=== PATIENT | male | born 1935 | race Caucasian/White ===

== ENCOUNTER 2016-08-18 06:17 | Emergency (ER) | payer OTHER ==
[2016-08-18 06:36] VITALS: PULSE 65; TEMP 98.3; BMI 24.3
[2016-08-18 06:54] VITALS: BP 129/107
--- NOTE | 2016-08-18 07:36 | PDOC ---
History of Present Illness - General Chief Complaint: Nasal Bleeding Stated Complaint: NOSEBLEED Time Seen by Provider: 08/18/16 07:15 History Source: Patient Exam Limitations: Language Barrier (Griffin, the ER hvac field service technician, was utilized for [place] interpretation) - History of Present Illness Initial Comments: CHIEF COMPLAINT: 81 y/o male with PMH HTN, HLD, GERD c/o nose bleed this morning. HISTORY OF PRESENT ILLNESS: The patient states his nose started bleeding spontaneously this morning. Eventually after applying pressure for a while the bleeding stopped. The patient denies f/c, dizziness, CP, SOB, n/v/d, trauma to face/nose. Pt takes a daily baby aspirin. Vital signs on arrival are notable for BP of 129/116 (the patient has not taken his morning BP meds) REVIEW OF SYSTEMS: GENERAL/CONSTITUTIONAL: No fever/chills. No weakness. No weight change. HEAD, EYES, EARS, NOSE AND THROAT: No change in vision. No ear pain or discharge. No sore throat. +nose bleed CARDIOVASCULAR: No chest pain or shortness of breath. SKIN: No rash or easy bruising. NEUROLOGIC: No headache, vertigo, loss of consciousness, or loss of sensation. PHYSICAL EXAM: GENERAL: The patient is awake, alert, and fully oriented, in no acute distress. HEAD: Normal with no signs of trauma. EYES: Pupils equal, round and reactive to light, extraocular movements intact, sclera anicteric, conjunctiva clear. NOSE: Dried blood in right nare. No septal hematomas. EXTREMITIES: Normal range of motion, no edema. NEUROLOGICAL: Normal speech, normal gait. PSYCH: Normal mood, normal affect. SKIN: Warm, Dry, normal turgor, no rashes or lesions noted. Past History - Past Medical History Allergies/Adverse Reactions: Allergies Allergy/AdvReac Type Severity Reaction Status Date / Time No Known Allergies Allergy Verified 08/18/16 06:33 Home Medications: Ambulatory Orders Ciclopirox/Skin Cleanser No.[id number] [Ciclodan 0.77% Cream Kit] 544 gm TP ASDIR Fluticasone Prop 0.05% Nasal [Flonase -] 1 - 2 spray NS DAILY 09/22/15 Omeprazole [Prilosec] 40 mg PO DAILY 09/22/15 Aspirin [Mal Chewable] 81 mg PO DAILY 08/18/16 Rosuvastatin [Crestor -] 0 mg PO DAILY 08/18/16 Cardiac Disorders: Yes (4 NC'S) CVA: Yes Diabetes: Yes (DIET CONTROLLED) HTN: Yes Hypercholesterolemia: Yes - Immunization History Immunization Up to Date: Yes - Psycho/Social/Smoking Cessation Hx Anxiety: No Suicidal Ideation: No Smoking History: Former smoker Have you smoked in the past 12 months: No If you are a former smoker, when did you quit?: 25 yrs Information on smoking cessation initiated: No Hx Alcohol Use: No Drug/Substance Use Hx: No Substance Use Type: None *Physical Exam - Vital Signs Last Vital Signs Temp Pulse Resp BP Pulse Ox 98.3 F 65 18 129/107 99 08/18/16 06:34 08/18/16 06:34 08/18/16 06:34 08/18/16 06:53 08/18/16 06:34 Medical Decision Making - Medical Decision Making A/P: 81 y/o male with nosebleed this morning that has resolved on its own. Instructed the patient not to touch his nose. Suggested he apply pressure and ice if nosebleed starts again and return to the ER with any concerning symptoms. The patient verbalizes understanding of all instructions, has no further questions and is awaiting discharge. *DC/Admit/Observation/Transfer Diagnosis at time of Disposition: Epistaxis - Discharge Dispostion Disposition: HOME Condition at time of disposition: Improved - Referrals Referrals: Silvio Vargas [Primary Care Provider] - - Patient Instructions Printed Discharge Instructions: DI for Nosebleed Additional Instructions: Discharge Instructions: -Return to the ER with any worsening or concerning symptoms Print Language: SERBIAN
== END 2016-08-18 08:06 | disposition home or self-care (01) ==
LOC: JER 06:17
DX: R04.0 Epistaxis (principal); I25.2 Old myocardial infarction; I10 Essential (primary) hypertension; E11.9 Type 2 diabetes mellitus without complications; E78.00 Pure hypercholesterolemia, unspecified; K21.9 Gastro-esophageal reflux disease without esophagitis; Z86.73 Personal history of transient ischemic attack (TIA), and cerebral infarction without residual deficits
CPT/HCPCS: 99282-25

== ENCOUNTER 2018-05-08 15:57 | Observation (INO) | payer OTHER ==
--- NOTE | 2018-05-08 16:08 | PDOC ---
Rapid Medical Evaluation Medical Evaluation: Allergies Allergy/AdvReac Type Severity Reaction Status Date / Time No Known Allergies Allergy Verified 08/18/16 06:33 05/08/18 16:06 I have done a brief in-person assessment of this patient. The patient presents with a chief complaint of dizziness. Patient brought in by family for elevated blood pressure, chest discomfort and dizziness. Patient states right sided chest pain through to back this am. Now with shortness of breath, chest pain, nausea and dizziness Pertinent physical exam findings NAD even and unlabored heart S1S2 no pedal edema I have ordered the following: ekg, labs The patient will proceed to the Ed for further evaluation. <Rolanda Senior - Last Filed: 05/08/18 16:06> Medical Evaluation: Allergies Allergy/AdvReac Type Severity Reaction Status Date / Time No Known Allergies Allergy Verified 08/18/16 06:33 Vital Signs Temp Pulse Resp BP Pulse Ox 98.9 F 89 16 192/99 H 98 05/08/18 16:04 05/08/18 16:04 05/08/18 16:04 05/08/18 16:04 05/08/18 16:04 <Dawna Chavez - Last Filed: 05/08/18 17:04> Chief Complaint: Chest Pain Time Seen by Provider: 05/08/18 16:06 Discharge Disposition <Rolanda Senior - Last Filed: 05/08/18 16:06> <Dawna Chavez - Last Filed: 05/08/18 17:04> - Discharge Dispostion Condition at time of disposition: Stable - Referrals Referrals: Silvio Vargas [Non Staff, Medical] -
[2018-05-08] MEDS ORDERED: ASPIRIN 81 MG CHEWABLE TABLETS PO ONE (16:19)
--- NOTE | 2018-05-08 16:19 | PDOC ---
History of Present Illness <Noemí Grande - Last Filed: 05/08/18 16:19> - General History Source: Patient Exam Limitations: No Limitations - History of Present Illness Initial Comments: 05/08/18 16:56 The patient is 82 a year old male, with a significant past medical history of CAD ([place] x4 and bypass), CVA, Diabetes, hypertension, and hyperlipidemia, who presents to the emergency department with, 2 days of chest pain. As per patient , his symptoms onset yesterday as substernal and nonradiating with associated shortness of breath and diaphoresis. He notes the chest pain resolved today but , the shortness of breath persisted and he became lightheaded; prompting his visit to the ER. He denies any recent fevers, chills, headache or dizziness. He denies any recent nausea, vomit, diarrhea or constipation. He denies any recent dysuria, frequency, urgency or hematuria. Allergies: NKDA Primary Care Physician: Dr. Vargas <Guerrero Macedo - Last Filed: 05/08/18 16:57> - General Chief Complaint: Chest Pain Stated Complaint: BLOOD PRESSURE PROBLEM Time Seen by Provider: 05/08/18 16:06 Past History - Past Medical History Cardiac Disorders: Yes (4 W[place]'S) CVA: Yes COPD: No Diabetes: Yes (DIET CONTROLLED) HTN: Yes Hypercholesterolemia: Yes - Immunization History Immunization Up to Date: Yes - Suicide/Smoking/Psychosocial Hx Smoking History: Never smoked Have you smoked in the past 12 months: No If you are a former smoker, when did you quit?: 25 yrs Information on smoking cessation initiated: No Hx Alcohol Use: No Drug/Substance Use Hx: No Substance Use Type: None <Noemí Grande - Last Filed: 05/08/18 16:19> <Guerrero Macedo - Last Filed: 05/08/18 16:57> - Past Medical History Allergies/Adverse Reactions: Allergies Allergy/AdvReac Type Severity Reaction Status Date / Time No Known Allergies Allergy Verified 08/18/16 06:33 Home Medications: Ambulatory Orders Ciclopirox/Skin Cleanser No.[id number] [Ciclodan 0.77% Cream Kit] 544 gm TP ASDIR Fluticasone Prop 0.05% Nasal [Flonase -] 1 - 2 spray NS DAILY 09/22/15 Omeprazole [Prilosec] 40 mg PO DAILY 09/22/15 Aspirin [Mal Chewable] 81 mg PO DAILY 08/18/16 Rosuvastatin [Crestor -] 0 mg PO DAILY 08/18/16 Review of Systems - Review of Systems Able to Perform ROS?: Yes Comments:: 05/08/18 16:56 GENERAL/CONSTITUTIONAL: No fever or chills. No weakness. HEAD, EYES, EARS, NOSE AND THROAT: No change in vision. No ear pain or discharge. No sore throat. CARDIOVASCULAR: Chest pain. SOB. Diaphoresis. RESPIRATORY: No cough, wheezing, or hemoptysis. GASTROINTESTINAL: No nausea, vomiting, diarrhea or constipation. GENITOURINARY: No dysuria, frequency, or change in urination. MUSCULOSKELETAL: No joint or muscle swelling or pain. No neck or back pain. SKIN: No rash NEUROLOGIC: No headache, vertigo, loss of consciousness, or change in strength/ sensation. ENDOCRINE: No increased thirst. No abnormal weight change. HEMATOLOGIC/LYMPHATIC: No anemia, easy bleeding, or history of blood clots. ALLERGIC/IMMUNOLOGIC: No hives or skin allergy. All Other Systems: Reviewed and Negative <Guerrero Macedo - Last Filed: 05/08/18 16:57> *Physical Exam - Vital Signs Last Vital Signs Temp Pulse Resp BP Pulse Ox 98.9 F 89 16 192/99 H 98 05/08/18 16:04 05/08/18 16:04 05/08/18 16:04 05/08/18 16:04 05/08/18 16:04 <Noemí Grande - Last Filed: 05/08/18 16:19> - Vital Signs Last Vital Signs Temp Pulse Resp BP Pulse Ox 98.9 F 89 16 192/99 H 98 05/08/18 16:04 05/08/18 16:04 05/08/18 16:04 05/08/18 16:04 05/08/18 16:04 <Guerrero Macedo - Last Filed: 05/08/18 16:57> Moderate Sedation - Procedure Monitoring Vital Signs: Procedure Monitoring Vital Signs Temperature 98.9 F 05/08/18 16:04 Pulse Rate 89 05/08/18 16:04 Respiratory Rate 16 05/08/18 16:04 Blood Pressure 192/99 H 05/08/18 16:04 O2 Sat by Pulse Oximetry (%) 98 05/08/18 16:04 <Noemí Grande - Last Filed: 05/08/18 16:19> - Procedure Monitoring Vital Signs: Procedure Monitoring Vital Signs Temperature 98.9 F 05/08/18 16:04 Pulse Rate 89 05/08/18 16:04 Respiratory Rate 16 05/08/18 16:04 Blood Pressure 192/99 H 05/08/18 16:04 O2 Sat by Pulse Oximetry (%) 98 05/08/18 16:04 <Guerrero Macedo - Last Filed: 05/08/18 16:57> ED Treatment Course - Medications Given in the ED: ED Medications Discontinued Medications Generic Name Dose Route Start Last Admin Trade Name Freq PRN Reason Stop Dose Admin Aspirin 162 mg 05/08/18 16:19 05/08/18 16:54 Asa - PO 05/08/18 16:20 162 mg ONCE ONE Administration <Guerrero Macedo - Last Filed: 05/08/18 16:57> *DC/Admit/Observation/Transfer <Noemí Grande - Last Filed: 05/08/18 16:19> - Attestations Scribe Attestion: 05/08/18 16:57 Documentation prepared by Guerrero Macedo, acting as director of medical education for Noemí Grande MD. <Guerrero Macedo - Last Filed: 05/08/18 16:57> - Discharge Dispostion Condition at time of disposition: Stable
[2018-05-08] MEDS ORDERED: ASPIRIN 81 MG CHEWABLE TABLETS ONE ×2 (16:39→16:44)
--- NOTE | 2018-05-08 17:15 | PDOC ---
History of Present Illness - General Chief Complaint: Chest Pain Stated Complaint: BLOOD PRESSURE PROBLEM Time Seen by Provider: 05/08/18 16:06 - History of Present Illness Initial Comments: 05/08/18 17:04 82 year old man with a history of CAD, 4 prior MIs with bypass, HTN, DM, HTN and HLD who presents with chest pain 1 day ago that onset while sitting down and radiated into the back and lasted until the night. The patient noted that his blood pressure was elevated to the 200s at that time and his chest pain was associated with shortness of breath and sweating. Today the patient recorded home blood pressure in the 200s as well and began felling dizziness and his family prompted him to come in. The patient denies any symptoms at bedside aside from a small headache. He is primarily concerned over his elevated blood pressure. He reports compliance of medications and denies recent illness or fever N/V/D/C or recent travel. He has no other complaints at bedside. Past History - Past Medical History Allergies/Adverse Reactions: Allergies Allergy/AdvReac Type Severity Reaction Status Date / Time No Known Allergies Allergy Verified 08/18/16 06:33 Home Medications: Ambulatory Orders Ciclopirox/Skin Cleanser No.28 [Ciclodan 0.77% Cream Kit] 544 gm TP ASDIR Fluticasone Prop 0.05% Nasal [Flonase -] 1 - 2 spray NS DAILY 09/22/15 Omeprazole [Prilosec] 40 mg PO DAILY 09/22/15 Aspirin [Mal Chewable] 81 mg PO DAILY 08/18/16 Rosuvastatin [Crestor -] 0 mg PO DAILY 08/18/16 Amlodipine Besylate 5 mg PO DAILY 05/10/18 Enalapril Maleate 10 mg PO DAILY 05/10/18 Januvia 50 mg PO DAILY 05/10/18 Metoprolol Succinate 50 mg PO DAILY 05/10/18 Cardiac Disorders: Yes (4 PR'S) CVA: Yes COPD: No Diabetes: Yes (DIET CONTROLLED) HTN: Yes Hypercholesterolemia: Yes - Immunization History Immunization Up to Date: Yes - Suicide/Smoking/Psychosocial Hx Smoking History: Never smoked Have you smoked in the past 12 months: No If you are a former smoker, when did you quit?: 25 yrs Information on smoking cessation initiated: No Hx Alcohol Use: No Drug/Substance Use Hx: No Substance Use Type: None Review of Systems - Review of Systems Able to Perform ROS?: Yes Is the patient limited Vietnamese proficient: No Constitutional: No: Chills, Diaphoresis HEENTM: No: Blurred Vision, Tinnitus Respiratory: No: Cough, Orthopnea, Shortness of Breath Cardiac (ROS): Yes: Chest Pain. No: Palpitations, Syncope ABD/GI: No: Constipated, Diarrhea, Nausea, Vomiting : No: Burning, Dysuria Neurological: No: Headache, Numbness, Tingling *Physical Exam - Vital Signs Last Vital Signs Temp Pulse Resp BP Pulse Ox 98.9 F 89 16 192/99 H 98 05/08/18 16:04 05/08/18 16:04 05/08/18 16:04 05/08/18 16:04 05/08/18 16:04 - Physical Exam Comments: 05/08/18 17:21 GENERAL: Awake, alert, and fully oriented, in no acute distress HEAD: No signs of trauma, normocephalic, atraumatic EYES: EOMI, sclera anicteric, conjunctiva clear ENT: oropharynx clear without exudates. Moist mucosa NECK: Normal ROM, supple LUNGS: No distress, speaks full sentences, clear to auscultation bilaterally HEART: Regular rate and rhythm, normal S1 and S2, no murmurs, rubs or gallops, peripheral pulses normal and equal bilaterally. ABDOMEN: Soft, nontender, normoactive bowel sounds. No guarding, no rebound. No masses EXTREMITIES : Normal inspection, Normal range of motion, no edema. No clubbing or cyanosis. NEUROLOGICAL: Cranial nerves II through XII grossly intact. Normal speech, no focal sensorimotor deficits SKIN: Warm, Dry, normal turgor, no rashes or lesions noted Moderate Sedation - Procedure Monitoring Vital Signs: Procedure Monitoring Vital Signs Temperature 98.9 F 05/08/18 16:04 Pulse Rate 89 05/08/18 16:04 Respiratory Rate 16 05/08/18 16:04 Blood Pressure 192/99 H 05/08/18 16:04 O2 Sat by Pulse Oximetry (%) 98 05/08/18 16:04 ED Treatment Course - LABORATORY CBC & Chemistry Diagram: 05/10/18 06:00 05/10/18 06:00 - Medications Given in the ED: ED Medications Discontinued Medications Generic Name Dose Route Start Last Admin Trade Name Aly PRN Reason Stop Dose Admin Aspirin 162 mg 05/08/18 16:19 05/08/18 16:54 Asa - PO 05/08/18 16:20 162 mg ONCE ONE Administration Medical Decision Making - Medical Decision Making 05/08/18 17:21 82 year old man with a history of CAD, 4 prior MIs with bypass, HTN, DM, HTN and HLD who presents with chest pain 1 day ago that onset while sitting down and radiated into the back and lasted until the night. The patient noted that his blood pressure was elevated to the 200s at that time and his chest pain was associated with shortness of breath and sweating. Today the patient recorded home blood pressure in the 200s as well and began felling dizziness and his family prompted him to come in. ED Course: concern for ACS vs arrythmia consider dissection however patient notes resolution of symptoms and with equal pulses Less likely PE as patient without recent immobilization and no hypercoagulable history 05/08/18 17:23 EKG: Aflutter with 5:1 conduction, narrow QRS, ST and T wave segments and morphology normal. pending labs 05/08/18 18:11 labwork unremarkable. Patient will require admission to r/o ACS and further workup and evaluation. *DC/Admit/Observation/Transfer Diagnosis at time of Disposition: Dizziness, Bradycardia, Atrial flutter - Discharge Dispostion Disposition: TRANSFER ACUTE CARE/OTHER HOSP Condition at time of disposition: Worsened Decision to Admit order: Yes - Referrals - Patient Instructions - Post Discharge Activity
[2018-05-08 17:23] LABS: BASO % 1.3 % (0-2.0); EOS % 6.7 % (0-4.5); HEMATOCRIT 36.8 % (35.4-49); HEMOGLOBIN 12.8 GM/dL (11.7-16.9); LYMPH % 28.7 % (8-40); MCHC 34.7 g/dl (32.0-35.9); MEAN CELL VOLUME 86.4 fl (80-96); MEAN PLT VOLUME 10.3 fl (7.5-11.1); MONO % 9.9 % (3.8-10.2); NEUT % 53.4 % (42.8-82.8); PLATELET COUNT 147 K/MM3 (134-434); RBC 4.27 M/mm3 (4.00-5.60); RDW 14.6 % (11.9-15.9); WHITE BLOOD COUNT 7.9 K/mm3 (4.0-10.0)
--- NOTE | 2018-05-08 17:23 | PDOC ---
Attending Attestation - Resident Resident Name: Dawna Chavez - ED Attending Attestation I have performed the following: I have examined & evaluated the patient, The case was reviewed & discussed with the resident, I agree w/resident's findings & plan - HPI HPI: 05/08/18 17:28 The patient is 82 a year old male, with a significant past medical history of CAD ([place] x4 and bypass), CVA, Diabetes, hypertension, and hyperlipidemia, who presents to the emergency department with, 2 days of chest pain. As per patient , his symptoms onset yesterday as substernal and nonradiating with associated shortness of breath and diaphoresis. He notes the chest pain resolved today but , the shortness of breath persisted and he became lightheaded; prompting his visit to the ER. He denies any recent fevers, chills, headache or dizziness. He denies any recent nausea, vomit, diarrhea or constipation. He denies any recent dysuria, frequency, urgency or hematuria. Allergies: NKDA Primary Care Physician: Dr. Vargas <Guerrero Macedo - Last Filed: 05/08/18 17:25> - Physicial Exam PE: 05/08/18 17:36 Agree with resident exam. Patient is alert and oriented and in no acute distress. Lungs are clear. Heart has regular rate and rhythm. Abdomen is soft , non tender and non distended. - Medical Decision Making 05/08/18 17:43 Pt presents to the ED complaining of chest pain which has now resolved and lightheadness. EKG shows rate controlled a flutter without ischemia. Multiple risk factors for cardiac disease. Differential includes ACS, anemia, less likely dehydration or <Noemí Grande - Last Filed: 05/08/18 17:55> Attestations - Attestations 05/08/18 17:28 Documentation prepared by Guerrero Macedo, acting as medical records clerk for Noemí Grande MD. <Guerrero Macedo - Last Filed: 05/08/18 17:25>
[2018-05-08 17:45] LABS: INR 0.98 (0.83-1.09); PROTHROMBIN TIME (PATIENT) 11.6 SEC (9.7-13.0)
[2018-05-08 17:53] LABS: ALBUMIN 3.5 g/dl (3.4-5.0); ALK PHOS 43 U/L (45-117); ANION GAP 8 MMOL/L (8-16); BILIRUBIN,TOTAL 0.3 mg/dL (0.2-1); BLOOD UREA NITROGEN 14 mg/dL (7-18); CALCIUM 8.8 mg/dL (8.5-10.1); CHLORIDE 109 mmol/L (98-107); CO2 25 mmol/L (21-32); CREATININE 0.8 mg/dL (0.55-1.3); GLUCOSE,RANDOM 126 mg/dL (74-106); N-TERMINAL BNP 819.7 pg/ml (5-450); POTASSIUM 3.8 mmol/L (3.5-5.1); SGOT/AST 23 U/L (15-37); SGPT/ALT 30 U/L (13-61); SODIUM 141 mmol/L (136-145); TOT PROT 7.1 g/dl (6.4-8.2)
--- NOTE | 2018-05-09 00:10 | HP ---
Admitting History and Physical - Primary Care Physician PCP: Silvio Vargas - Admission Chief Complaint: Elevated Blood pressure and Chest pain History of Present Illness: The patient is an 82 year old male with significant past medical history of 4 MIs in the past, CVA, Diabetes, hypertension, and hyperlipidemia who presents to the ED with c/o elevated blood pressure overnight. Pt reports taking his BP on multiple ocassions and it was elevated to 190/105. He reports compliance with meds and is unable to identify any triggers to severe elevation in BP. PT reports strict diet adherence and consumes home cooked meals. Upon awakening this morning, pt retook his vitals and noted persistly blood pressure readings. Symptoms now progressed to include dizziness, headache, diaphoresis and substernal CP. He denies N/V or palpitations. CXR: no acute process EKG: Slow AFlutter Labs: trop x 1 negative, BNP 819 Vitals in ED BP 192/99. HR 89, T 98.9, O2 sat 98, RR 16. Pt given ASA 162mg and no meds given for BP control. Rpt BP at 6pm 169/88mmHg. Upon arrival to tele unit BP 160/75mmHg. Norvasc 5mg administered. Pt admitted for observation overnight and will be discharged with cards f/u for medication adjustment. 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 Cardiovascular: Yes: HTN, Hyperlipdemia, [place] Musculoskeletal: Yes: Osteoarthritis Endocrine: Yes: Diabetes Mellitus (diet controlled.) - Past Surgical History Past Surgical History: Yes: Cataract Removal Additional Past Surgical History: Facial fracture repair as a child - Smoking History Smoking history: Former smoker Have you smoked in the past 12 months: No If you are a former smoker, when did you quit?: 2-3 packs per day x 25 yrs - Alcohol/Substance Use Hx Alcohol Use: Yes (social events) History of Substance Use: reports: None - Social History Usual Living Arrangement: Yes: With Spouse, With Child (adult daughter) Home Medications - Allergies Allergies/Adverse Reactions: Allergies Allergy/AdvReac Type Severity Reaction Status Date / Time No Known Allergies Allergy Verified 08/18/16 06:33 - Home Medications Home Medications: Ambulatory Orders Ciclopirox/Skin Cleanser No.28 [Ciclodan 0.77% Cream Kit] 544 gm TP ASDIR Fluticasone Prop 0.05% Nasal [Flonase -] 1 - 2 spray NS DAILY 09/22/15 Omeprazole [Prilosec] 40 mg PO DAILY 09/22/15 Aspirin [Mal Chewable] 81 mg PO DAILY 08/18/16 Rosuvastatin [Crestor -] 0 mg PO DAILY 08/18/16 Family Disease History - Family Disease History Other Family History: non-contributory Review of Systems - Review of Systems Constitutional: reports: No Symptoms Eyes: reports: No Symptoms HENT: reports: No Symptoms Neck: reports: No Symptoms Cardiovascular: reports: Chest Pain Respiratory: reports: No Symptoms Gastrointestinal: reports: No Symptoms Genitourinary: reports: No Symptoms Breasts: reports: No Symptoms Reported Musculoskeletal: reports: Joint Pain Integumentary: reports: No Symptoms Neurological: reports: Unsteady Gait Endocrine: reports: No Symptoms Hematology/Lymphatic: reports: No Symptoms Psychiatric: reports: No Symptoms Physical Examination Vital Signs: Vital Signs Temperature 98.9 F 05/08/18 16:04 Pulse Rate 89 05/08/18 16:04 Respiratory Rate 16 05/08/18 16:04 Blood Pressure 192/99 H 05/08/18 16:04 O2 Sat by Pulse Oximetry (%) 98 05/08/18 16:04 Constitutional: Yes: Well Nourished, No Distress, Calm Eyes: Yes: EOM Intact HENT: Yes: Atraumatic, Normocephalic Neck: Yes: Supple, Trachea Midline Cardiovascular: Yes: Regular Rate and Rhythm Respiratory: Yes: Regular, CTA Bilaterally Gastrointestinal: Yes: Soft, Hypoactive Bowel Sounds ...Rectal Exam: Yes: Deferred Renal/: Yes: WNL Breast(s): Yes: WNL Musculoskeletal: Yes: WNL Extremities: Yes: WNL Edema: No Peripheral Pulses WNL: Yes Peripheral Pulses: Left Radial: 2+, Right Radial: 2+, Left Doralis Pedis: 2+, Right Dorsalis Pedis: 2+ Integumentary: Yes: Venous Stasis Changes Neurological: Yes: Alert, Oriented ...Motor Strength: WNL Psychiatric: Yes: WNL, Alert, Oriented Labs: CBC, BMP 05/08/18 17:00 05/08/18 16:08 Imaging - Results Chest X-ray: Report Reviewed (CXR 05/08/2018: No acute disease) Problem List - Problems (1) CAD (coronary artery disease) Assessment/Plan: Crestor 10mg qhs Cardiac diet Code(s): I25.10 - ATHSCL HEART DISEASE OF [place] CORONARY ARTERY W/O ANG PCTRS (2) Atrial flutter Assessment/Plan: Pt is unsure of home meds and his pharmacy is currently closed. If patient discharged within 24hours, he can restart home dose of meds. If not, pt's pharmacy will be called for medication reconciliation metoprolol 25mg at 6am Observe on tele unit ? pt unsure of anticoagulation status. His private windows server specialist is Dr. José Keita @ [phone] EKG in AM prior to discharge Pt had appt with cards tomorrow morning 05/09 at 9am, pt will reschedule appt for 24-48hrs post hospital discharge. Code(s): I48.92 - UNSPECIFIED ATRIAL FLUTTER (3) Full code status Assessment/Plan: Full Code Code(s): Z78.9 - OTHER SPECIFIED HEALTH STATUS (4) Hypertension Assessment/Plan: pt states he takes enalapril but does not recall dosage: start 10mg in AM norvasc 5mg overnight low salt diet Code(s): I10 - ESSENTIAL (PRIMARY) HYPERTENSION Qualifiers: Hypertension type: essential hypertension Qualified Code(s): I10 - Essential (primary) hypertension Assessment/Plan OOB to chair SC heparin BID bowel regimen with senna and colace DISPO: d/c home if no overnight events. Pt will follow up with his own windows server specialist. Visit type - Emergency Visit Emergency Visit: Yes ED Registration Date: 05/08/18 Care time: The patient presented to the Emergency Department on the above date and was hospitalized for further evaluation of their emergent condition. - New Patient This patient is new to me today: Yes Date on this admission: 05/09/18 - Critical Care Critical Care patient: No
[2018-05-09] MEDS ORDERED: amLODIPine BESYLATE 5 MG TABLET (FP) PO STA (00:26)
[2018-05-09] MEDS ORDERED: METOPROLOL TARTRATE 25 MG TABLET (FP) ONE (06:39)
[2018-05-09] MEDS: METOPROLOL TARTRATE 25 MG TABLET (FP) PO SCH ×2 (06:42→10:00)
[2018-05-09 09:05] LABS: N-TERMINAL BNP 653.8 pg/ml (5-450)
[2018-05-09] MEDS: ASPIRIN COATED 81 MG TABLET.EC PO SCH (10:00)
[2018-05-09] MEDS ORDERED: ENALAPRIL MALEATE 10 MG TABLET (FP) PO SCH (10:00)
[2018-05-09] MEDS: DOCUSATE SODIUM 100 MG CAPSULE (FP) PO SCH ×2 (10:00→21:35)
[2018-05-09] MEDS: HEPARIN NA (PORCINE) 5,000 UNITS/ML 1ML VIAL SQ SCH ×2 (10:00→21:35)
--- NOTE | 2018-05-09 10:00 | EKG ---
Test Reason : Blood Pressure : / mmHG Vent. 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
--- NOTE | 2018-05-09 10:03 | EKG ---
Test Reason : Blood Pressure : / mmHG Vent. Rate : 040 BPM Atrial Rate : 242 BPM P-R Int : 000 ms QRS Dur : 074 ms QT Int : 518 ms P-R-T Axes : 092 030 033 degrees QTc Int : 422 ms ATRIAL FLUTTER WITH VARIABLE A-V BLOCK SEPTAL INFARCT (CITED ON OR BEFORE 08-MAY-2018) ABNORMAL ECG Confirmed by Antonio Webb MD ([id number]) on 05/09/2018 10:02:51 AM Referred By: Confirmed By:Antonio Webb MD
--- NOTE | 2018-05-09 12:44 | PN ---
Progress Note, Physician Chief Complaint: HTN New onset A-flutter History of Present Illness: Previous notes and events reviewed awake and alert lying in bed NAD patient noted on tele monitor to become tachycardic in the 130s on exam, ED RN says pt has been having periods of bradycardia going into the 50s then will become tachycardic denies chest pain, denies SOB EKGs in ED show a-flutter trop neg x 2 - Current Medication List Current Medications: Active Medications Acetaminophen (Tylenol -) 650 mg PO Q6H PRN PRN Reason: PAIN LEVEL 4 - 6 Aspirin (Ecotrin -) 81 mg PO DAILY [facility] Last Admin: 05/09/18 10:00 Dose: 81 mg Docusate Sodium (Colace -) 100 mg PO BID [facility] Last Admin: 05/09/18 10:00 Dose: 100 mg Enalapril Maleate (Vasotec -) 10 mg PO DAILY [facility] Last Admin: 05/09/18 10:00 Dose: 10 mg Heparin Sodium (Porcine) (Heparin -) 5,000 unit SQ BID [facility] Last Admin: 05/09/18 10:00 Dose: 5,000 unit Metoprolol Tartrate (Lopressor -) 25 mg PO DAILY [facility] Last Admin: 05/09/18 10:00 Dose: 25 mg Rosuvastatin Calcium (Crestor -) 10 mg PO [facility] Senna (Senna -) 2 tab PO HS [facility] - Objective Vital Signs: Vital Signs Temperature 97.4 F L 05/09/18 10:42 Pulse Rate 63 05/09/18 10:42 Respiratory Rate 16 05/09/18 10:42 Blood Pressure 162/83 05/09/18 10:42 O2 Sat by Pulse Oximetry (%) 96 05/09/18 10:42 Constitutional: Yes: Well Nourished, No Distress, Calm Eyes: Yes: Conjunctiva Clear HENT: Yes: Atraumatic Neck: Yes: Supple Cardiovascular: Yes: Tachycardia Respiratory: Yes: Regular, CTA Bilaterally Gastrointestinal: Yes: Normal Bowel Sounds, Soft Musculoskeletal: Yes: Muscle Weakness Extremities: Yes: WNL Edema: No Integumentary: Yes: WNL Neurological: Yes: Alert, Oriented Psychiatric: Yes: Alert, Oriented Labs: CBC, BMP 05/08/18 17:00 05/08/18 16:08 INR, PTT INR 0.98 (0.83-1.09) 05/08/18 17:00 - ....Imaging EKG: Report Reviewed <Lorrie Mathis - Last Filed: 05/09/18 12:38> - Current Medication List Current Medications: Active Medications Acetaminophen (Tylenol -) 650 mg PO Q6H PRN PRN Reason: PAIN LEVEL 4 - 6 Aspirin (Ecotrin -) 81 mg PO DAILY [facility] Last Admin: 05/09/18 10:00 Dose: 81 mg Docusate Sodium (Colace -) 100 mg PO BID [facility] Last Admin: 05/09/18 21:35 Dose: 100 mg Heparin Sodium (Porcine) (Heparin -) 5,000 unit SQ BID [facility] Last Admin: 05/09/18 21:35 Dose: 5,000 unit Rosuvastatin Calcium (Crestor -) 10 mg PO [facility] Last Admin: 05/09/18 21:35 Dose: 10 mg Senna (Senna -) 2 tab PO [facility] Last Admin: 05/09/18 21:35 Dose: 2 tab - Objective Vital Signs: Vital Signs Temperature 98.2 F 05/10/18 05:53 Pulse Rate 53 L 05/10/18 05:53 Respiratory Rate 18 05/10/18 05:53 Blood Pressure 141/67 05/10/18 05:53 O2 Sat by Pulse Oximetry (%) 96 05/09/18 20:00 Labs: CBC, BMP 05/10/18 06:00 05/10/18 06:00 INR, PTT INR 0.98 (0.83-1.09) 05/08/18 17:00 <Anne Tipton - Last Filed: 05/10/18 07:00> Problem List - Problems (1) Atrial flutter Code(s): I48.92 - UNSPECIFIED ATRIAL FLUTTER (2) Bradycardia Code(s): R00.1 - BRADYCARDIA, UNSPECIFIED (3) CAD (coronary artery disease) Code(s): I25.10 - ATHSCL HEART DISEASE OF [place] CORONARY ARTERY W/O ANG PCTRS (4) Dizziness Code(s): R42 - DIZZINESS AND GIDDINESS (5) Hypertension Code(s): I10 - ESSENTIAL (PRIMARY) HYPERTENSION Qualifiers: Hypertension type: essential hypertension Qualified Code(s): I10 - Essential (primary) hypertension <Lorrie Mathis - Last Filed: 05/09/18 12:38> Assessment/Plan -admit to tele unit for cardiac monitoring -cardiology consult made -cont with metoprolol for rate control, hold if HR <60bpm -cont with vasotec for BP mngmt -cont with crestor for HLD -tylenol for pain mngmt -monitor HR q4h -dvt ppx -PT eval -low Na diet <Lorrie Mathis - Last Filed: 05/09/18 12:38> PATIENT SEEN AND EXAMINED AND I AGREE WITH THE ABOVE NOTE <Anne Tipton - Last Filed: 05/10/18 07:00>
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
--- NOTE | 2018-05-09 15:44 | ECHO ---
Name: GEORGETTE SCOTT Exam:Adult Echocardiogram Study Date: 05/09/2018 03:08 PM Age: 82 yrs Reason For Study: A-FLUTTER NEW ONSET Height: 68 in Weight: 160 lb BSA: 1.9 m2 MMode/2D Measurements & Calculations IVSd: 0.96 cm Ao root diam: 3.4 cm LVIDd: 5.4 cm LA dimension: 3.9 cm LVIDs: 3.3 cm LVPWd: 0.87 cm EDV(Teich): 139.4 ml TAPSE: 2.1 cm ESV(Teich): 43.5 ml Doppler Measurements & Calculations MV E max ibrahima: 76.0 cm/sec Ao V2 max: 127.2 cm/sec MV A max ibrahima: 32.6 cm/sec Ao max P.5 mmHg MV E/A: 2.3 Ao V2 mean: 79.4 cm/sec MV dec time: 0.13 sec Ao mean P.0 mmHg Ao V2 VTI: 29.9 cm AI P1/2t: 1048 msec AI max ibrahima: 271.5 cm/sec LV V1 max P.1 mmHg AI max P.5 mmHg LV V1 mean P.5 mmHg LV V1 max: 88.4 cm/sec AI dec slope: 75.9 cm/sec2 LV V1 mean: 57.0 cm/sec LV V1 VTI: 21.5 cm MR max ibrahima: 447.3 cm/sec TR max ibrahima: 228.2 cm/sec MR max P.2 mmHg TR max P.0 mmHg Med Peak E' Ibrahima: 9.2 cm/sec Med E/e': 8.3 Lat Peak E' Ibrahima: 15.2 cm/sec Lat E/e': 5.0 Procedure A complete two-dimensional transthoracic echocardiogram was performed (2D, M-mode, Doppler and color flow Doppler). The patient was in atrial flutter during the exam. Left Ventricle The left ventricular size, thickness and function are normal. Ejection Fraction = 60%. The transmitra l spectral Doppler flow pattern is suggestive of impaired LV relaxation. The left ventricular wall cate on is normal. Right Ventricle The right ventricle is normal in size and function. Atria Normal left and right atrial size and function. Mitral Valve The mitral valve is normal. There is moderate mitral regurgitation. Tricuspid Valve The tricuspid valve is normal. There is moderate tricuspid regurgitation. Right ventricular systolic pressure is 25 mmhg. Aortic Valve There is mild to moderate aortic valve thickening. Mild aortic regurgitation. Pulmonic Valve The pulmonic valve is not well seen, but is grossly normal. Trace to mild pulmonic valvular regurgita tion. Great Vessels The aortic root is normal size. Normal aortic arch, descending and ascending aorta. Pericardium/Pleura There is no pericardial effusion. There is no pleural effusion. Interpretation Summary The left ventricular size, thickness and function are normal Ejection Fraction = 60%. The transmitral spectral Doppler flow pattern is suggestive of impaired LV relaxation. There is moderate mitral regurgitation. There is moderate tricuspid regurgitation. Right ventricular systolic pressure is 25 mmhg. There is mild to moderate aortic valve thickening. Mild aortic regurgitation. Trace to mild pulmonic valvular regurgitation. MD Antonio Webb 05/09/2018 03:44 PM
[2018-05-09] MEDS: SENNOSIDES 8.6MG TABLET (FP) PO SCH (21:35)
[2018-05-09] MEDS: ROSUVASTATIN CA 10 MG TABLET (FP) PO SCH (21:35)
[2018-05-10 00:23] VITALS: BMI 23.6
--- NOTE | 2018-05-10 06:15 | HOSP ---
Subjective - Review of Symptoms Events since last encounter: Hospitalist Encounter Notified by the primary RN, that the patient has been bradycardic 40's Subjective: Arrived to bedside, patient is alert and oriented, has no complaints. Patient is Uzbek speaking, the primary RN was at the bedside, translating. Patient denies dizziness, SOB, CP, palpitations. PE performed see EMR Plan: EKG stat Hold BB for now until [place] reviews overnight's events Physical Examination Vital Signs: Vital Signs Temperature 98.2 F 05/10/18 05:53 Pulse Rate 53 L 05/10/18 05:53 Respiratory Rate 18 05/10/18 05:53 Blood Pressure 141/67 05/10/18 05:53 O2 Sat by Pulse Oximetry (%) 96 05/09/18 20:00 Constitutional: Yes: No Distress, Calm Eyes: Yes: WNL, Conjunctiva Clear, EOM Intact, PERRL HENT: Yes: WNL, Atraumatic, Normocephalic Neck: Yes: WNL, Supple, Trachea Midline Cardiovascular: Yes: Bradycardia, S1, S2 Respiratory: Yes: On Nasal O2 Gastrointestinal: Yes: WNL, Normal Bowel Sounds, Soft Musculoskeletal: Yes: WNL Extremities: Yes: WNL Peripheral Pulses WNL: Yes Neurological: Yes: WNL, Alert, Oriented, Cran Nerves II-XII Intact ...Motor Strength: WNL Psychiatric: Yes: WNL, Alert, Oriented Hospitalist Encounter Outcome: EKG reviewed- Aflutter with slow VR 47bpm, no change compared to prior study
[2018-05-10 06:16] LABS: HEMATOCRIT 38.8 % (35.4-49); HEMOGLOBIN 12.4 GM/dL (11.7-16.9); MCH 27.8 pg (25.7-33.7); MEAN CELL VOLUME 86.8 fl (80-96); MEAN PLT VOLUME 10.5 fl (7.5-11.1); PLATELET COUNT 147 K/MM3 (134-434); RBC 4.47 M/mm3 (4.00-5.60); RDW 14.7 % (11.9-15.9); WHITE BLOOD COUNT 7.2 K/mm3 (4.0-10.0)
[2018-05-10 06:53] LABS: ALBUMIN 3.4 g/dl (3.4-5.0); ALK PHOS 43 U/L (45-117); ANION GAP 8 MMOL/L (8-16); BILIRUBIN,TOTAL 0.4 mg/dL (0.2-1); BLOOD UREA NITROGEN 19 mg/dL (7-18); CALCIUM 8.4 mg/dL (8.5-10.1); CHLORIDE 110 mmol/L (98-107); CO2 26 mmol/L (21-32); CREATININE 0.9 mg/dL (0.55-1.3); GLUCOSE,RANDOM 104 mg/dL (74-106); POTASSIUM 4.1 mmol/L (3.5-5.1); SGOT/AST 18 U/L (15-37); SGPT/ALT 27 U/L (13-61); SODIUM 144 mmol/L (136-145); TOT PROT 6.8 g/dl (6.4-8.2)
--- NOTE | 2018-05-10 09:24 | PN ---
Progress Note, Physician Chief Complaint: AWAKE ALERT EVENTS AND NOTES REVIEWED DENIES CHEST PAIN - Current Medication List Current Medications: Active Medications Acetaminophen (Tylenol -) 650 mg PO Q6H PRN PRN Reason: PAIN LEVEL 4 - 6 Aspirin (Ecotrin -) 81 mg PO DAILY [facility] Last Admin: 05/09/18 10:00 Dose: 81 mg Docusate Sodium (Colace -) 100 mg PO BID [facility] Last Admin: 05/09/18 21:35 Dose: 100 mg Heparin Sodium (Porcine) (Heparin -) 5,000 unit SQ BID [facility] Last Admin: 05/09/18 21:35 Dose: 5,000 unit Rosuvastatin Calcium (Crestor -) 10 mg PO [facility] Last Admin: 05/09/18 21:35 Dose: 10 mg Senna (Senna -) 2 tab PO [facility] Last Admin: 05/09/18 21:35 Dose: 2 tab - Objective Vital Signs: Vital Signs Temperature 98.2 F 05/10/18 05:53 Pulse Rate 53 L 05/10/18 05:53 Respiratory Rate 18 05/10/18 07:00 Blood Pressure 141/67 05/10/18 05:53 O2 Sat by Pulse Oximetry (%) 96 05/10/18 07:00 Constitutional: Yes: Mild Distress Eyes: Yes: WNL HENT: Yes: WNL Neck: Yes: WNL Cardiovascular: Yes: Pulse Irregular Respiratory: Yes: WNL Gastrointestinal: Yes: WNL Genitourinary: Yes: WNL Musculoskeletal: Yes: Muscle Weakness Extremities: Yes: WNL Edema: No Peripheral Pulses WNL: Yes Integumentary: Yes: WNL Neurological: Yes: Pre-Existing Deficit ...Motor Strength: WNL Psychiatric: Yes: WNL Labs: CBC, BMP 05/10/18 06:00 05/10/18 06:00 INR, PTT INR 0.98 (0.83-1.09) 05/08/18 17:00 Problem List - Problems (1) Atrial flutter Code(s): I48.92 - UNSPECIFIED ATRIAL FLUTTER (2) Bradycardia Code(s): R00.1 - BRADYCARDIA, UNSPECIFIED (3) CAD (coronary artery disease) Code(s): I25.10 - ATHSCL HEART DISEASE OF [place] CORONARY ARTERY W/O ANG PCTRS (4) Dizziness Code(s): R42 - DIZZINESS AND GIDDINESS (5) Status post CVA Code(s): Z86.73 - PRSNL HX OF TIA (TIA), AND CEREB INFRC W/O RESID DEFICITS Assessment/Plan CHECK LABS CARDIO EVAL APPRECIATED MONITOR ON TELEMETRY PT EVAL OOB TO CHAIR DC PLANNING TOMORROW ONCE RATE CONTROLLED
[2018-05-10] MEDS: ASPIRIN COATED 81 MG TABLET.EC PO SCH (10:30)
[2018-05-10] MEDS: ACETAMINOPHEN 325 MG TABLET (FP) PO PRN (10:30)
[2018-05-10] MEDS: HEPARIN NA (PORCINE) 5,000 UNITS/ML 1ML VIAL SQ SCH ×2 (10:30→21:13)
[2018-05-10] MEDS: DOCUSATE SODIUM 100 MG CAPSULE (FP) PO SCH ×2 (10:30→21:13)
--- NOTE | 2018-05-10 12:57 | EKG ---
Test Reason : Blood Pressure : / mmHG Vent. Rate : 041 BPM Atrial Rate : 234 BPM P-R Int : 000 ms QRS Dur : 080 ms QT Int : 520 ms P-R-T Axes : 268 012 022 degrees QTc Int : 429 ms ATRIAL FLUTTER WITH VARIABLE A-V BLOCK SEPTAL INFARCT (CITED ON OR BEFORE 08-MAY-2018) ABNORMAL ECG WHEN COMPARED WITH ECG OF 09-MAY-2018 00:27, SERIAL CHANGES OF EVOLVING SEPTAL INFARCT PRESENT Confirmed by KADIE CONCEPCION MD ([id number]) on 05/10/2018 12:57:20 PM Referred By: Confirmed By:KADIE CONCEPCION MD
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
[2018-05-10] MEDS: METOPROLOL TARTRATE 25 MG TABLET (FP) PO SCH (17:09)
[2018-05-10] MEDS ORDERED: hydrALAZINE HCL 50 MG TABLET (FP) PO ONE (20:00)
[2018-05-10] MEDS: ROSUVASTATIN CA 10 MG TABLET (FP) PO SCH (21:13)
[2018-05-10] MEDS: SENNOSIDES 8.6MG TABLET (FP) PO SCH (21:13)
[2018-05-11] MEDS: ACETAMINOPHEN 325 MG TABLET (FP) PO PRN (05:16)
[2018-05-11] MEDS ORDERED: NITROGLYCERIN SUBLINGUAL 1/150 0.4 MG TAB SL PRN (09:53)
--- NOTE | 2018-05-11 10:00 | PN ---
Progress Note, Physician Chief Complaint: c/o dizziness, weakness tele aflutter with slow ventricular response, some RVR. History of Present Illness: 82 year old male with significant past medical history of CAD (denies cath or stents), CVA, Diabetes, hypertension, and hyperlipidemia who presents to the ED with c/o elevated blood pressure overnight, found to be in atrial flutter with alternating slow and RVR. No chest pain, sob, orthopnea, pnd or edema. He has dizziness while supine. Telemetry showed atrial flutter with slow VR, HR 44, some 30's, alternating with 2:1 AV conduction. Echo 05/09/18 Normal EF, mild AI, mod MR/TR - Current Medication List Current Medications: Active Medications Acetaminophen (Tylenol -) 650 mg PO Q6H PRN PRN Reason: PAIN LEVEL 4 - 6 Last Admin: 05/11/18 05:16 Dose: 650 mg Apixaban (Eliquis -) 5 mg PO BID [facility] Aspirin (Ecotrin -) 81 mg PO DAILY [facility] Last Admin: 05/10/18 10:30 Dose: 81 mg Docusate Sodium (Colace -) 100 mg PO BID [facility] Last Admin: 05/10/18 21:13 Dose: 100 mg Metoprolol Tartrate (Lopressor -) 25 mg PO DAILY [facility] Last Admin: 05/10/18 17:09 Dose: 25 mg Rosuvastatin Calcium (Crestor -) 10 mg PO [facility] Last Admin: 05/10/18 21:13 Dose: 10 mg Senna (Senna -) 2 tab PO [facility] Last Admin: 05/10/18 21:13 Dose: 2 tab - Objective Vital Signs: Vital Signs Temperature 97.6 F 05/11/18 05:15 Pulse Rate 58 L 05/11/18 05:15 Respiratory Rate 18 05/11/18 05:15 Blood Pressure 158/80 05/11/18 05:15 O2 Sat by Pulse Oximetry (%) 95 05/10/18 23:00 Constitutional: Yes: No Distress, Calm Eyes: Yes: Conjunctiva Clear, EOM Intact HENT: Yes: Atraumatic, Normocephalic Neck: Yes: Supple, Trachea Midline Cardiovascular: Yes: Bradycardia, Pulse Irregular Respiratory: Yes: CTA Bilaterally Gastrointestinal: Yes: Normal Bowel Sounds, Soft Extremities: Yes: WNL Peripheral Pulses WNL: Yes Labs: CBC, BMP 05/10/18 06:00 05/10/18 06:00 INR, PTT INR 0.98 (0.83-1.09) 05/08/18 17:00 Assessment/Plan 82 year old male with significant past medical history of CAD (denies cath or stents), CVA, Diabetes, hypertension, and hyperlipidemia who presents to the ED with c/o elevated blood pressure overnight, found to be in atrial flutter with alternating slow and RVR. No chest pain, sob, orthopnea, pnd or edema. He has dizziness while supine. Telemetry showed atrial flutter with slow VR, HR 44, some 30's, alternating with 2:1 AV conduction. Echo 05/09/18 Normal EF, mild AI, mod MR/TR 1. Atrial Flutter -Continue Eliquis 5 mg bid -holding BB for now due to bradycardia with dizziness -ER Tele shows more slow VR (no symptoms) than RVR. -Echo shows normal EF. -plan is transfer to [facility] for EPS eval for consideration of DCCV may need PPM or ablation. 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 2. HTN -needs home medication list -continue norvasc. -Increase enalapril to 10 mg bid 3. CAD -stable -cont asa and statin.
--- NOTE | 2018-05-11 10:05 | DS ---
Physical Examination Vital Signs: Vital Signs Temperature 97.6 F 05/11/18 05:15 Pulse Rate 58 L 05/11/18 05:15 Respiratory Rate 18 05/11/18 05:15 Blood Pressure 158/80 05/11/18 05:15 O2 Sat by Pulse Oximetry (%) 95 05/10/18 23:00 Findings/Remarks: Complain of dizziness and mid chest pain, non-radiating, 8/10 on examination this morning. Nitro SL ordered. Currently connected to [employer] for tele monitoring. Constitutional: Yes: Calm, Mild Distress Eyes: Yes: Conjunctiva Clear Neck: Yes: Supple Cardiovascular: Yes: Bradycardia Respiratory: Yes: Regular, CTA Bilaterally Gastrointestinal: Yes: Normal Bowel Sounds, Soft Musculoskeletal: Yes: Muscle Weakness Extremities: Yes: WNL Edema: No Integumentary: Yes: WNL Neurological: Yes: Alert, Oriented Psychiatric: Yes: Alert, Oriented Labs: CBC, BMP 05/10/18 06:00 05/10/18 06:00 <Lorrie Mathis - Last Filed: 05/11/18 09:58> Vital Signs: Vital Signs Temperature 97.5 F L 05/11/18 09:00 Pulse Rate 67 05/11/18 10:20 Respiratory Rate 18 05/11/18 10:20 Blood Pressure 126/76 05/11/18 10:20 O2 Sat by Pulse Oximetry (%) 98 05/11/18 07:00 Labs: CBC, BMP 05/10/18 06:00 05/10/18 06:00 <Anne Tipton - Last Filed: 05/13/18 08:51> Discharge Summary Reason For Visit: ATRIAL FLUTTER,BRADYCARDIA,HYPERTENSION Current Active Problems Atrial flutter (Acute) Bradycardia (Acute) CAD (coronary artery disease) (Acute) Dizziness (Acute) Procedures: Principal: EKG. Echocardiogram. CXR Hospital Course: Patient is an 82 y/o male admitted with new onset a-flutter. During hospital course patient had episodes of tachycardia and bradycardia. Most recently patient has become more bradycardic. Patient had episode of HR in 30s on . Evaluated by cardiology in AM. Patient to be transferred to [facility] for EP study and possible ablation. Complain of dizziness and mid chest pain, non- radiating, 8/10 on examination this morning. Nitro SL ordered. Currently connected to [employer] monitor for tele monitoring. - Home Medications Comprehensive Discharge Medication List: Ambulatory Orders Ciclopirox/Skin Cleanser No.28 [Ciclod[place] 0.77% Cream Kit] 544 gm TP ASDIR Fluticasone Prop 0.05% Nasal [Flonase -] 1 - 2 spray NS DAILY 09/22/15 Omeprazole [Prilosec] 40 mg PO DAILY 09/22/15 Aspirin [Mal Chewable] 81 mg PO DAILY 08/18/16 Rosuvastatin [Crestor -] 0 mg PO DAILY 08/18/16 Amlodipine Besylate 5 mg PO DAILY 05/10/18 Enalapril Maleate 10 mg PO DAILY 05/10/18 Januvia 50 mg PO DAILY 05/10/18 Metoprolol Succinate 50 mg PO DAILY 05/10/18 <Lorrie Mathis - Last Filed: 05/11/18 09:58> - Home Medications Comprehensive Discharge Medication List: Ambulatory Orders Ciclopirox/Skin Cleanser No.28 [Ciclodan 0.77% Cream Kit] 544 gm TP ASDIR Fluticasone Prop 0.05% Nasal [Flonase -] 1 - 2 spray NS DAILY 09/22/15 Omeprazole [Prilosec] 40 mg PO DAILY 09/22/15 Aspirin [Mal Chewable] 81 mg PO DAILY 08/18/16 Rosuvastatin [Crestor -] 0 mg PO DAILY 08/18/16 Amlodipine Besylate 5 mg PO DAILY 05/10/18 Enalapril Maleate 10 mg PO DAILY 05/10/18 Januvia 50 mg PO DAILY 05/10/18 Metoprolol Succinate 50 mg PO DAILY 05/10/18 <Anne Tipton - Last Filed: 05/13/18 08:51> Condition: Worsened - Instructions Diet, Activity, Other Instructions: Patient to be transferred to [facility] for EP study and possible ablation Referrals: Silvio Vargas [Primary Care Provider] - Disposition: TRANSFER ACUTE CARE/OTHER HOSP
[2018-05-11] MEDS: DOCUSATE SODIUM 100 MG CAPSULE (FP) PO SCH (10:14)
[2018-05-11] MEDS: ASPIRIN COATED 81 MG TABLET.EC PO SCH (10:14)
[2018-05-11] MEDS: METOPROLOL TARTRATE 25 MG TABLET (FP) PO SCH (10:15)
[2018-05-11 10:16] VITALS: TEMP 97.5
[2018-05-11 10:21] VITALS: BP 126/76; PULSE 67
[2018-05-11] MEDS ORDERED: APIXABAN 5 MG TABLET PO SCH (11:15)
--- NOTE | 2018-06-16 15:03 | EKG ---
Test Reason : Blood Pressure : / mmHG Vent. Rate : 061 BPM Atrial Rate : 244 BPM P-R Int : 000 ms QRS Dur : 104 ms QT Int : 434 ms P-R-T Axes : 094 021 063 degrees QTc Int : 436 ms ATRIAL FLUTTER WITH VARIABLE A-V BLOCK SEPTAL INFARCT (CITED ON OR BEFORE 08-MAY-2018) ABNORMAL ECG Confirmed by YANICK CERON MD ([id number]) on 06/16/2018 3:02:56 PM Referred By: PIERRE HWANG Confirmed By:YANICK CERON MD
--- NOTE | 2018-06-23 11:49 | EKG ---
Test Reason : Blood Pressure : / mmHG Vent. Rate : 049 BPM Atrial Rate : 241 BPM P-R Int : 000 ms QRS Dur : 068 ms QT Int : 490 ms P-R-T Axes : 000 022 041 degrees QTc Int : 442 ms POOR DATA QUALITY, INTERPRETATION MAY BE ADVERSELY AFFECTED ATRIAL FLUTTER WITH VARIABLE A-V BLOCK SEPTAL INFARCT (CITED ON OR BEFORE 08-MAY-2018) ABNORMAL ECG Confirmed by YANICK CERON MD ([id number]) on 06/23/2018 11:48:36 AM Referred By: Confirmed By:YANICK CERON MD
--- NOTE | 2018-06-23 11:50 | EKG ---
Test Reason : Blood Pressure : / mmHG Vent. Rate : 055 BPM Atrial Rate : 234 BPM P-R Int : 000 ms QRS Dur : 076 ms QT Int : 490 ms P-R-T Axes : 000 020 049 degrees QTc Int : 468 ms ATRIAL FLUTTER WITH VARIABLE A-V BLOCK Confirmed by YANICK CERON MD ([id number]) on 06/23/2018 11:49:41 AM Referred By: Confirmed By:YANICK CERON MD
== END 2018-05-11 12:18 | disposition short-term general hospital (02) ==
LOC: JER 15:57 → JERBED 19:33 → J4S 05-09 19:53
PROVIDERS: ATTEND Family Medicine
PROC: 3E013GC Introduction of Other Therapeutic Substance into Subcutaneous Tissue, Percutaneous Approach (ICD-10-PCS; principal; 2018-05-08)
DX: I48.92 Unspecified atrial flutter (principal); R00.1 Bradycardia, unspecified; R42 Dizziness and giddiness; I10 Essential (primary) hypertension; E78.5 Hyperlipidemia, unspecified; E11.9 Type 2 diabetes mellitus without complications; I25.10 Atherosclerotic heart disease of native coronary artery without angina pectoris; I25.2 Old myocardial infarction; Z78.9 Other specified health status; Z79.82 Long term (current) use of aspirin; Z95.1 Presence of aortocoronary bypass graft; Z86.73 Personal history of transient ischemic attack (TIA), and cerebral infarction without residual deficits
CPT/HCPCS: 36415; 71045-TC-FY; 80053; 82550; 83036; 83880; 84100; 84484; 85025; 85027; 85610; 85730; 93005; 93010; 93306-TC; 96372; 99284-25; G0378; J1644

== ENCOUNTER 2019-03-22 22:09 | Inpatient (IN) | payer OTHER ==
[2019-03-22 22:13] VITALS: BMI 24.5
--- NOTE | 2019-03-22 22:31 | PDOC ---
History of Present Illness - General Chief Complaint: Shortness of Breath Stated Complaint: SHORTNESS OF BREATH Time Seen by Provider: 03/22/19 22:29 History Source: Patient - History of Present Illness Initial Comments: 03/26/19 07:31 HPI: 83M PMH NIDDM, HTN, CAD presenting w/ 45 minutes of foreign body sensation in the throat. Pt feels it is affecting his ability to breath but is not short of breath. Endorses a discomfort swallowing but no pain or drooling. Denies f/c, cp /sob, n/v/d. Ate food hours before sx onset. Pt unable to recall his medications. NKDA, NKA. Prior jaw surgery s/p fracture limits ROM. Past History - Past Medical History Allergies/Adverse Reactions: Allergies Allergy/AdvReac Type Severity Reaction Status Date / Time No Known Allergies Allergy Verified 08/18/16 06:33 Home Medications: Ambulatory Orders Ciclopirox/Skin Cleanser No.28 [Ciclodan 0.77% Cream Kit] 544 gm TP ASDIR Fluticasone Prop 0.05% Nasal [Flonase -] 1 - 2 spray NS DAILY 09/22/15 Omeprazole [Prilosec] 40 mg PO DAILY 09/22/15 Aspirin [Mal Chewable] 81 mg PO DAILY 08/18/16 Amlodipine Besylate 5 mg PO DAILY 05/10/18 Enalapril Maleate 10 mg PO DAILY 05/10/18 Januvia 50 mg PO DAILY 05/10/18 Metoprolol Succinate 50 mg PO DAILY 05/10/18 Cardiac Disorders: Yes (4 NY'S) CVA: Yes COPD: No Diabetes: Yes (DIET CONTROLLED) HTN: Yes Hypercholesterolemia: Yes - Surgical History Cardiac Surgery: Yes (stent) - Immunization History Immunization Up to Date: Yes - Psycho Social/Smoking Cessation Hx Smoking History: Former smoker Have you smoked in the past 12 months: No If you are a former smoker, when did you quit?: 30 years ago Information on smoking cessation initiated: No Hx Alcohol Use: No Drug/Substance Use Hx: No Substance Use Type: None Hx Substance Use Treatment: No Review of Systems - Review of Systems Able to Perform ROS?: Yes Comments:: 03/26/19 07:31 ROS: CONSTITUTIONAL: Denies F / C HEENT: Endorses foreign body sensation in throat, endorses discomfort w/ . Denies drooling, inability to swallow or pass air, pain w/ swallowing. headache , lightheadedness, dizziness, changes in vision / hearing, diplopia, blurry vision Denies sore throat, rhinorrhea. RESP: Denies SOB, cough, orthopnea, RAMIREZ CARD: Denies chest pain, palpitations GI: Denies N / V / D, abdominal pain, bloody stool, inability to tolerate PO : Denies dysuria, hematuria, frequency SKIN: Denies rashes NEURO: Denies numbness, tingling, weakness *Physical Exam - Vital Signs Last Vital Signs Temp Pulse Resp BP Pulse Ox 98 F 67 24 H 163/84 98 03/22/19 22:11 03/22/19 22:11 03/22/19 22:11 03/22/19 22:11 03/22/19 22:11 - Physical Exam Comments: 03/26/19 07:31 PE: GEN: NAD. AAOx3 HEENT: NC/AT, CN II-XII intact, EOMI, PERRLA. No facial asymmetry. +uvular edema w/ anterior motion on expiration, moist mucous membranes, no drooling. Prior jaw surgery and limited ROM limits oropharyngeal exam. Normal voice, not muffled. Supple neck w/ FROM. CV: S1/S2, RRR, no m/r/g LUNG: Clear air movement w/o stridor at the neck. Normal respiratory effort w/o accessory muscle use. CTAB, no wheezes, crackles, rales, rhonchi. GI: soft, ndnt, +BS, no guarding, no rebound. EXTREMITIES: No obvious deformities of all extremities. SKIN: warm, dry, normal turgor PSYCH: normal mood and affect NEURO: FROM UE and LE b/l. 5/5 bicep/tricep/cash manager strength b/l. 5/5 UE strength b /l. 5/5 LE strength b/l. Sensation symmetric and intact throughout. ED Treatment Course - LABORATORY CBC & Chemistry Diagram: 03/22/19 23:24 03/22/19 23:24 Medical Decision Making - Medical Decision Making 03/22/19 22:57 MDM: 83M w/ uvular edema. Normal respiratory effort and SaO2 at time of exam. Pt unable to recall medications but chart review shows he was on ACEi, unsure if current. - cbc, cmp - racemic epi - benadryl, steroids, anti-histamine - close monitoring and reassess 03/23/19 00:07 pt improving s/p meds reassessment demonstrates uvular edema but no longer w/ anterior motion. edema appears to have decreased. confirmed w/ family that pt is on enalapril 03/23/19 00:37 pt feels better SaO2 98% labs reviewed admit for obs Discharge - Discharge Information Problems reviewed: Yes Clinical Impression/Diagnosis: Angioedema Qualifiers: Encounter type: initial encounter Qualified Code(s): T78.3XXA - Angioneurotic edema, initial encounter Condition: Good - Follow up/Referral - Patient Discharge Instructions - Post Discharge Activity
[2019-03-22] MEDS ORDERED: methylPREDNISolone NA SUCC 125 MG/2 ML VIAL IVPB ONE (23:02)
[2019-03-22] MEDS ORDERED: FAMOTIDINE 20 MG/50 ML IVPB 20 MG/50 ML MG IVPB ONE ×2 (23:09→23:27)
[2019-03-22] MEDS ORDERED: RACEPINEPHRINE IH SOL 2.25% 11.25 MG/0.5 ML VIAL IH ONE (23:20)
[2019-03-22] MEDS ORDERED: RACEPINEPHRINE IH SOL 2.25% 11.25 MG/0.5 ML VIAL NEB ONE (23:26)
[2019-03-22] MEDS ORDERED: methylPREDNISolone NA SUCC 125 MG/2 ML VIAL ONE (23:27)
--- NOTE | 2019-03-22 23:28 | PDOC ---
Documentation entered by Tj Ventura SCRIBE, acting as scribe for Corwin Pulido MD. Corwin Pulido MD: This documentation has been prepared by the Lorenzo gil Daniel, SCRIBE, under my direction and personally reviewed by me in its entirety. I confirm that the documentation accurately reflects all work, treatment, procedures, and medical decision making performed by me. Attending Attestation - Resident Resident Name: BranYahir - ED Attending Attestation I have performed the following: I have examined & evaluated the patient, The case was reviewed & discussed with the resident, I agree w/resident's findings & plan, Exceptions are as noted - HPI HPI: 03/22/19 22:53 The patient is an 83 year old male with a past medical history of CAD (4 prior MIs with bypass), HTN, HLD, CVA, and non insulin dependent diabetes here today for evaluation of "something in my throat". The patient reports that he has had 1 hour of feeling like something is stuck in his throat which he states is causing him to have difficulty breathing and swallowing. He notes that he is able to swallow but it feels uncomfortable when he does. Pt notes he ate jolene food this evening, and his symptoms started shortly after. Denies any facial swelling. Denies tongue swelling. Denies rash. Denies SOB. He reports that he he had 1 similar episode in the past which he attributes to eating the same Jolene food he ate today. He denies eating anything with bones. Patient denies headache, lightheadedness. Denies fever, chills. Denies chest pain. Denies nausea, vomiting, diarrhea, abdominal pain. Allergies: NKA PCP: Lefty Vargas - Physicial Exam PE: 03/22/19 22:53 GENERAL: Awake, alert, and fully oriented, in no acute distress. HEAD: No signs of trauma EYES: PERRLA, EOMI, sclera anicteric, conjunctiva clear ENT: + edematous midline uvula, Auricles normal inspection, hearing grossly normal, nares patent, oropharynx clear without exudates. Moist mucosa NECK: Nontender, no stepoffs, Normal ROM, supple, no lymphadenopathy, JVD, or masses LUNGS: Breath sounds equal, clear to auscultation bilaterally. No wheezes, and no crackles HEART: Regular rate and rhythm, normal S1 and S2, no murmurs, rubs or gallops ABDOMEN: Soft, nontender, normoactive bowel sounds. No guarding, no rebound. No masses EXTREMITIES: Normal range of motion, no edema. No clubbing or cyanosis. No cords, erythema, or tenderness NEUROLOGICAL: Cranial nerves II through XII intact. 5/5 strength and sensation in all extremities, Normal speech, normal gait, normal cerebellar function SKIN: Warm, Dry, normal turgor, no rashes or lesions noted. - Critical Care Time Total Critical Care Time: 60 Critical Care Statement: The care of this patient involved high complexity decision making to prevent further life threatening deterioration of the patient 's condition and/or to evaluate & treat vital organ system(s) failure or risk of failure. - Medical Decision Making 03/22/19 23:29 83 M with edematous uvula. ?Quincke's edema. Possible allergic reaction to food pt ate today. Also consider ACEI angioedema as pt is on enalapril. No infectious symptoms or sore throat to suggest pharyngitis. - Labs - Steroids, benadryl, pepcid - Racemic epi - DISCONTINUE enalapril 03/23/19 00:52 Pt reassessed - notes some improvement in swelling. Will admit for continued monitoring 03/23/19 01:24 Pt admitted to [facility]
[2019-03-22 23:45] LABS: BASO % 1.4 % (0-2.0); EOS % 3.3 % (0-4.5); HEMATOCRIT 35.1 % (35.4-49); HEMOGLOBIN 11.7 GM/dL (11.7-16.9); LYMPH % 28.8 % (8-40); MCH 28.7 pg (25.7-33.7); MCHC 33.5 g/dl (32.0-35.9); MEAN CELL VOLUME 85.9 fl (80-96); MEAN PLT VOLUME 10.5 fl (7.5-11.1); MONO % 9.7 % (3.8-10.2); NEUT % 56.8 % (42.8-82.8); PLATELET COUNT 204 K/MM3 (134-434); RBC 4.08 M/mm3 (4.00-5.60); RDW 14.7 % (11.9-15.9); WHITE BLOOD COUNT 8.8 K/mm3 (4.0-10.0)
[2019-03-23 00:16] LABS: ALBUMIN 3.9 g/dl (3.4-5.0); BILIRUBIN,TOTAL 0.2 mg/dL (0.2-1); BLOOD UREA NITROGEN 19.9 mg/dL (7-18); CALCIUM 9.5 mg/dL (8.5-10.1); CREATININE 1.1 mg/dL (0.55-1.3); TOT PROT 7.7 g/dl (6.4-8.2)
--- NOTE | 2019-03-23 04:09 | HP ---
Admitting History and Physical - Primary Care Physician PCP: Dr. Tipton - Admission Chief Complaint: Angioedema History of Present Illness: 83 year old male with a past medical history of CAD (4 prior MIs with bypass), HTN, HLD, CVA, and non insulin dependent diabetes arrived to Emergency room with complain of "something in my throat". As per ED note patient reported that he has had 1 hour of feeling like something is stuck in his throat which he states is causing him to have difficulty breathing and swallowing. Patient able to swallow but it feels uncomfortable when he does. Last meal was jolene food this evening, and his symptoms started shortly after. Denies any facial swelling,tongue swelling, rash, SOB. Patient reports that he he had 1 similar episode in the past which he attributes to eating the same Jolene food. Patient denies headache, CP, lightheadedness, fever, N/V, diarrhea, Abdominal pain. 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 Cardiovascular: Yes: HTN, Hyperlipdemia, [place] Musculoskeletal: Yes: Osteoarthritis Endocrine: Yes: Diabetes Mellitus (diet controlled.) - Past Surgical History Past Surgical History: Yes: Bypass, Cataract Removal - Smoking History Smoking history: Former smoker Have you smoked in the past 12 months: No If you are a former smoker, when did you quit?: 30 years ago - Alcohol/Substance Use Hx Alcohol Use: No History of Substance Use: reports: None - Social History Usual Living Arrangement: Yes: Alone History of Recent Travel: No Home Medications - Allergies Allergies/Adverse Reactions: Allergies Allergy/AdvReac Type Severity Reaction Status Date / Time No Known Allergies Allergy Verified 08/18/16 06:33 - Home Medications Home Medications: Ambulatory Orders Ciclopirox/Skin Cleanser No.28 [Ciclodan 0.77% Cream Kit] 544 gm TP ASDIR Fluticasone Prop 0.05% Nasal [Flonase -] 1 - 2 spray NS DAILY 09/22/15 Omeprazole [Prilosec] 40 mg PO DAILY 09/22/15 Aspirin [Mal Chewable] 81 mg PO DAILY 08/18/16 Amlodipine Besylate 5 mg PO DAILY 05/10/18 Enalapril Maleate 10 mg PO DAILY 05/10/18 Januvia 50 mg PO DAILY 05/10/18 Metoprolol Succinate 50 mg PO DAILY 05/10/18 Family Medical History Family History: Denies Review of Systems - Review of Systems Constitutional: reports: No Symptoms Eyes: reports: No Symptoms HENT: reports: Difficult Swallowing, Throat Pain Neck: reports: No Symptoms Cardiovascular: reports: No Symptoms Respiratory: reports: SOB Gastrointestinal: reports: No Symptoms Genitourinary: reports: No Symptoms Musculoskeletal: reports: No Symptoms Integumentary: reports: No Symptoms Neurological: reports: No Symptoms Endocrine: reports: No Symptoms Hematology/Lymphatic: reports: No Symptoms Psychiatric: reports: No Symptoms Physical Examination Vital Signs: Vital Signs Temperature 98 F 03/22/19 22:11 Pulse Rate 67 03/22/19 22:11 Respiratory Rate 24 H 03/22/19 22:11 Blood Pressure 163/84 03/22/19 22:11 O2 Sat by Pulse Oximetry (%) 98 03/22/19 22:11 Constitutional: Yes: No Distress, Calm Eyes: Yes: Conjunctiva Clear, EOM Intact HENT: Yes: Atraumatic, Normocephalic Neck: Yes: Supple, Trachea Midline Cardiovascular: Yes: Regular Rate and Rhythm Respiratory: Yes: Regular, CTA Bilaterally Gastrointestinal: Yes: Normal Bowel Sounds, Soft Musculoskeletal: Yes: WNL Extremities: Yes: WNL Edema: No Peripheral Pulses WNL: Yes Neurological: Yes: Alert, Oriented Labs: CBC, BMP 03/22/19 23:24 03/22/19 23:24 Problem List - Problems (1) Allergic reaction Code(s): T78.40XA - ALLERGY, UNSPECIFIED, INITIAL ENCOUNTER (2) Angioedema Code(s): T78.3XXA - ANGIONEUROTIC EDEMA, INITIAL ENCOUNTER (3) HLD (hyperlipidemia) Code(s): E78.5 - HYPERLIPIDEMIA, UNSPECIFIED (4) CAD (coronary artery disease) Code(s): I25.10 - ATHSCL HEART DISEASE OF [place] CORONARY ARTERY W/O ANG PCTRS (5) Hypertension Code(s): I10 - ESSENTIAL (PRIMARY) HYPERTENSION Qualifiers: Hypertension type: essential hypertension Qualified Code(s): I10 - Essential (primary) hypertension (6) Status post CVA Code(s): Z86.73 - PRSNL HX OF TIA (TIA), AND CEREB INFRC W/O RESID DEFICITS Assessment/Plan 83 year old male with a past medical history of CAD (4 prior MIs with bypass), HTN, HLD, CVA, and non insulin dependent diabetes arrived to Emergency room with complain of "something in my throat". As per ED note patient reported that he has had 1 hour of feeling like something is stuck in his throat which he states is causing him to have difficulty breathing and swallowing. #allergic reaction #angioedema In ED given: racemic epi, benadryl, steroids, anti-histamine - monitor spo2 closely - Benadryl 25 mg BID PRN - consider steroids if symptoms persist or reappear - speech & swallow consult #CAD/HTN/HLD -Metoprolol Succinate 50 mg PO DAILY -Amlodipine Besylate 5 mg PO DAILY -Hold MAYO's -Lipitor 10 mg daily -lipids profile #DM -monitor BGM -Januvia 50 mg PO DAILY -hgbA1c #GERD - Pepcid 20 mg PO DAILY VTE : Heparin SQ Diet: follow speech/ swallow consult, then resume MARIA TERESA/NCS diet Fluids: NS @ 50 ml/hr Dispo: Inpatient medicine Visit type - Emergency Visit Emergency Visit: Yes ED Registration Date: 03/23/19 Care time: The patient presented to the Emergency Department on the above date and was hospitalized for further evaluation of their emergent condition. - New Patient This patient is new to me today: Yes Date on this admission: 03/23/19 - Critical Care Critical Care patient: No
[2019-03-23] MEDS ORDERED: ACETAMINOPHEN 325 MG TABLET (FP) PO PRN (04:32)
[2019-03-23] MEDS: SODIUM CHLORIDE 1,000 ML IV SCH ×2 (04:50→12:21)
[2019-03-23] MEDS ORDERED: sitaGLIPtin PHOSPHATE 50 MG TABLET ONE (05:28)
[2019-03-23] MEDS ORDERED: sitaGLIPtin PHOSPHATE 50 MG TABLET PO SCH (07:00)
[2019-03-23] MEDS: HEPARIN NA (PORCINE) 5,000 UNITS/ML 1ML VIAL SQ SCH ×2 (09:35→09:40)
[2019-03-23] MEDS ORDERED: PATIENT'S OWN MEDICATION (NON-FORMULARY) (Metoprolol Succinate 50 MG) PO SCH (10:00)
[2019-03-23] MEDS ORDERED: amLODIPine BESYLATE 5 MG TABLET (FP) PO SCH (10:00)
[2019-03-23] MEDS ORDERED: JANUVIA 50 MG PO SCH (10:00)
[2019-03-23] MEDS ORDERED: AMLODIPINE BESYLATE 5 MG PO SCH (10:00)
[2019-03-23] MEDS ORDERED: diphenhydrAMINE HCL 25 MG CAPSULE (FP) PO SCH (10:00)
[2019-03-23] MEDS ORDERED: FAMOTIDINE 20 MG TABLET PO SCH (10:00)
[2019-03-23 11:09] VITALS: TEMP 98.3
[2019-03-23] MEDS ORDERED: FAMOTIDINE 20 MG/50 ML IVPB 20 MG/50 ML MG IVPB ONE (11:40)
--- NOTE | 2019-03-23 11:46 | PN ---
Progress Note, Physician Chief Complaint: patient says he has difficulty with swallowing feels like infection History of Present Illness: cannot open mouth wide open having difficulty bc he said he had prior surgery - Current Medication List Current Medications: Active Medications Acetaminophen (Tylenol -) 650 mg PO Q6H PRN PRN Reason: PAIN LEVEL 4 - 6 Amlodipine Besylate (Norvasc -) 5 mg PO DAILY [facility] Last Admin: 03/23/19 09:35 Dose: 5 mg Atorvastatin Calcium (Lipitor -) 20 mg PO HS [facility] Dexamethasone Sodium Phosphate (Decadron Injection -) 10 mg IVPUSH Q8H-IV HAIR Diphenhydramine HCl (Benadryl -) 25 mg PO BID [facility] Last Admin: 03/23/19 09:35 Dose: 25 mg Famotidine (Pepcid -) 20 mg PO DAILY [facility] Last Admin: 03/23/19 09:35 Dose: 20 mg Heparin Sodium (Porcine) (Heparin -) 5,000 unit SQ BID [facility] Last Admin: 03/23/19 09:40 Dose: 5,000 unit Sodium Chloride (Normal Saline -) 1,000 mls @ 50 mls/hr IV ASDIR [facility] Stop: 03/24/19 04:32 Last Admin: 03/23/19 04:50 Dose: 50 mls/hr Famotidine/Sodium Chloride (Pepcid 20 Mg Premixed Ivpb -) 20 mg in 50 mls @ 100 mls/hr IVPB ONCE ONE Stop: 03/23/19 12:09 Metoprolol Succinate (Toprol Xl -) 50 mg PO DAILY [facility] Last Admin: 03/23/19 09:35 Dose: 50 mg Sitagliptin Phosphate (Januvia -) 50 mg PO DAILY@0700 [facility] Last Admin: 03/23/19 07:11 Dose: 50 mg - Objective Vital Signs: Vital Signs Temperature 98.3 F 03/23/19 11:08 Pulse Rate 68 03/23/19 11:08 Respiratory Rate 18 03/23/19 11:08 Blood Pressure 132/82 03/23/19 11:08 O2 Sat by Pulse Oximetry (%) 98 03/23/19 11:08 Constitutional: Yes: Calm, Thin HENT: Yes: Other (no lymphadenopathy) Cardiovascular: Yes: Regular Rate and Rhythm, S1, S2 Respiratory: Yes: CTA Bilaterally Gastrointestinal: Yes: Normal Bowel Sounds, Soft Edema: No Neurological: Yes: Alert Labs: CBC, BMP 03/22/19 23:24 03/22/19 23:24 Problem List - Problems (1) Difficulty swallowing Assessment/Plan: NPO except meds swallow eval ENT consult for further examination decadron iv q8hr benadryl famotidine Code(s): R13.10 - DYSPHAGIA, UNSPECIFIED (2) HLD (hyperlipidemia) Assessment/Plan: lipitor Code(s): E78.5 - HYPERLIPIDEMIA, UNSPECIFIED (3) CAD (coronary artery disease) Assessment/Plan: metoprolol, lipitor Code(s): I25.10 - ATHSCL HEART DISEASE OF [place] CORONARY ARTERY W/O ANG PCTRS (4) Diabetes Assessment/Plan: niharika hgba1c Code(s): E11.9 - TYPE 2 DIABETES MELLITUS WITHOUT COMPLICATIONS
[2019-03-23] MEDS: DEXAMETHASONE SOD PHOSPHATE 10 MG/1 ML VIAL IVPUSH SCH ×2 (12:19→18:03)
[2019-03-23] MEDS ORDERED: METOPROLOL TARTRATE 5 MG/5 ML VIAL IVPB PRN (12:29)
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
--- NOTE | 2019-03-23 13:00 | PN ---
Progress Note (short form) - Note Progress Note: Called by RN to evaluate patient. Patient complain of feeling like something is stuck in his throat. On examination noted with swollen uvula and saliva pooling in back throat. Spoke with Dr Gonzáles, and ICU consult placed. Denies SOB and SpO2 95% on RA.
--- NOTE | 2019-03-23 13:04 | EKG ---
Test Reason : Blood Pressure : / mmHG Vent. Rate : 056 BPM Atrial Rate : 056 BPM P-R Int : 274 ms QRS Dur : 076 ms QT Int : 462 ms P-R-T Axes : 067 013 030 degrees QTc Int : 445 ms SINUS BRADYCARDIA WITH 1ST DEGREE A-V BLOCK Confirmed by YANICK CERON MD ([id number]) on 03/23/2019 1:04:13 PM Referred By: Confirmed By:YANICK CERON MD
[2019-03-23] MEDS ORDERED: PNEUMOC 13-VAL CONJ-DIP CRM/PF 0.5 ML DISP.SYRIN IM ONE (15:00)
--- NOTE | 2019-03-23 15:10 | PN ---
Teaching Attending Note Name of Resident: Gilda Lacy ATTENDING PHYSICIAN STATEMENT I saw and evaluated the patient. I reviewed the resident's note and discussed the case with the resident. I agree with the resident's findings and plan as documented. SUBJECTIVE: Patient seen and examined in the ICU. 83 M, CAD, CABG, HTN, HLD, CVA, and non insulin dependent diabetes. Admitted via the ER due to "something in my throat ". Patient was apparently eating Art food last night. This AM he developed the sensation that something was stuck in his throat. This caused him to have difficulty breathing and swallowing. No new medications. No facial swelling, tongue swelling, or rash. Noted on evaluation to have a very limited ability to open his airway due to previous surgery and an enlarged uvula. Intake & Output 03/20/19 03/21/19 03/22/19 03/23/19 23:59 23:59 23:59 23:59 Weight 160 lb 14.999 oz 160 lb 14.999 oz Last Vital Signs Temp Pulse Resp BP Pulse Ox 98.3 F 52 L 20 142/81 98 03/23/19 11:08 03/23/19 13:58 03/23/19 13:58 03/23/19 13:58 03/23/19 11:08 Active Medications Acetaminophen (Tylenol -) 650 mg PO Q6H PRN PRN Reason: PAIN LEVEL 4 - 6 Dexamethasone Sodium Phosphate (Decadron Injection -) 10 mg IVPUSH Q8H-IV HAIR Last Admin: 03/23/19 12:19 Dose: 10 mg Diphenhydramine HCl (Benadryl Injection -) 50 mg IVPUSH Q4H HAIR Last Admin: 03/23/19 12:40 Dose: 50 mg Heparin Sodium (Porcine) (Heparin -) 5,000 unit SQ BID HAIR Last Admin: 03/23/19 09:40 Dose: 5,000 unit Sodium Chloride (Normal Saline -) 1,000 mls @ 50 mls/hr IV ASDIR HAIR Stop: 03/24/19 04:32 Last Admin: 03/23/19 12:21 Dose: 50 mls/hr Famotidine/Sodium Chloride (Pepcid 20 Mg Premixed Ivpb -) 20 mg in 50 mls @ 100 mls/hr IVPB BID [facility] Metoprolol Tartrate (Lopressor Injection -) 5 mg IVPB Q4H PRN PRN Reason: HYPERTENSION Constitutional: Yes: No Distress, Calm Eyes: Yes: Conjunctiva Clear, EOM Intact HENT: Yes: )+) erythma and enlargement of the uvula Neck: Yes: Supple, Trachea Midline Cardiovascular: Yes: Regular Rate and Rhythm Respiratory: Yes: Regular, CTA Bilaterally Gastrointestinal: Yes: Normal Bowel Sounds, Soft Musculoskeletal: Yes: WNL Extremities: Yes: WNL Edema: No Peripheral Pulses WNL: Yes Neurological: Yes: Alert, Oriented Labs: Laboratory Results - last 24 hr 03/22/19 03/22/19 23:24 23:24 WBC 8.8 RBC 4.08 Hgb 11.7 Hct 35.1 L MCV 85.9 MCH 28.7 MCHC 33.5 RDW 14.7 Plt Count 204 D MPV 10.5 Absolute Neuts (auto) 5.0 Neutrophils % 56.8 Lymphocytes % 28.8 Monocytes % 9.7 Eosinophils % 3.3 Basophils % 1.4 Nucleated RBC % 0 Sodium 139 Potassium 4.0 Chloride 107 Carbon Dioxide 24 Anion Gap 7 L BUN 19.9 H Creatinine 1.1 Est GFR (CKD-EPI)AfAm 72.07 Est GFR (CKD-EPI)NonAf 62.19 Random Glucose 114 H Calcium 9.5 Total Bilirubin 0.2 AST 31 ALT 36 Alkaline Phosphatase 47 Total Protein 7.7 Albumin 3.9 Problem List - Problems (1) Allergic reaction Code(s): T78.40XA - ALLERGY, UNSPECIFIED, INITIAL ENCOUNTER (2) Angioedema Code(s): T78.3XXA - ANGIONEUROTIC EDEMA, INITIAL ENCOUNTER (3) HLD (hyperlipidemia) Code(s): E78.5 - HYPERLIPIDEMIA, UNSPECIFIED (4) CAD (coronary artery disease) Code(s): I25.10 - ATHSCL HEART DISEASE OF [place] CORONARY ARTERY W/O ANG PCTRS (5) Hypertension Code(s): I10 - ESSENTIAL (PRIMARY) HYPERTENSION Qualifiers: Hypertension type: essential hypertension Qualified Code(s): I10 - Essential (primary) hypertension (6) Status post CVA Code(s): Z86.73 - PRSNL HX OF TIA (TIA), AND CEREB INFRC W/O RESID DEFICITS Assessment/Plan R/O Angioedema R/O allergic reaction CAD HTN HPL DM GERD DM NPO ENT evaluation called O2 as needed Noted: Benadryl, Decadron, Pepcid, Anti-histamine Swallow evaluation Hold MAYO Glycemic control ICU monitoring for potential airway compromise Dr Robledo
--- NOTE | 2019-03-23 17:26 | PN ---
Physical Exam: SUBJECTIVE: Patient seen and examined OBJECTIVE: Vital Signs Period Temp Pulse Resp BP Sys/Reddy Pulse Ox Last 24 Hr 98 F-98.4 F 52-68 17-24 126-163/76-84 97-98 GENERAL: The patient is awake, alert, and fully oriented, in no acute distress. HEAD: Normal with no signs of trauma. EYES: PERRL, extraocular movements intact, sclera anicteric, conjunctiva clear. No ptosis. ENT: Ears normal, nares patent, oropharynx clear without exudates, moist mucous membranes. NECK: Trachea midline, full range of motion, supple. LUNGS: Breath sounds equal, clear to auscultation bilaterally, no wheezes, no crackles, no accessory muscle use. HEART: Regular rate and rhythm, S1, S2 without murmur, rub or gallop. ABDOMEN: Soft, nontender, nondistended, normoactive bowel sounds, no guarding, no rebound, no hepatosplenomegaly, no masses. EXTREMITIES: 2+ pulses, warm, well-perfused, no edema. NEUROLOGICAL: Cranial nerves II through XII grossly intact. Normal speech, gait not observed. PSYCH: Normal mood, normal affect. SKIN: Warm, dry, normal turgor, no rashes or lesions noted Laboratory Results - last 24 hr 03/22/19 03/22/19 23:24 23:24 WBC 8.8 RBC 4.08 Hgb 11.7 Hct 35.1 L MCV 85.9 MCH 28.7 MCHC 33.5 RDW 14.7 Plt Count 204 D MPV 10.5 Absolute Neuts (auto) 5.0 Neutrophils % 56.8 Lymphocytes % 28.8 Monocytes % 9.7 Eosinophils % 3.3 Basophils % 1.4 Nucleated RBC % 0 Sodium 139 Potassium 4.0 Chloride 107 Carbon Dioxide 24 Anion Gap 7 L BUN 19.9 H Creatinine 1.1 Est GFR (CKD-EPI)AfAm 72.07 Est GFR (CKD-EPI)NonAf 62.19 Random Glucose 114 H Calcium 9.5 Total Bilirubin 0.2 AST 31 ALT 36 Alkaline Phosphatase 47 Total Protein 7.7 Albumin 3.9 Active Medications Generic Name Dose Route Start Last Admin Trade Name Freq PRN Reason Stop Dose Admin Acetaminophen 650 mg 03/23/19 04:32 Tylenol - PO Q6H PRN PAIN LEVEL 4 - 6 Dexamethasone Sodium Phosphate 10 mg 03/23/19 11:45 03/23/19 12:19 Decadron Injection - IVPUSH 10 mg Q8H-IV HAIR Administration Diphenhydramine HCl 50 mg 03/23/19 13:00 03/23/19 12:40 Benadryl Injection - IVPUSH 50 mg Q4H HAIR Administration Heparin Sodium (Porcine) 5,000 unit 03/23/19 10:00 03/23/19 09:40 Heparin - SQ 5,000 unit BID HAIR Administration Sodium Chloride 1,000 mls @ 50 mls/hr 03/23/19 04:45 03/23/19 12:21 Normal Saline - IV 03/24/19 04:32 50 mls/hr ASDIR HAIR Administration Famotidine/Sodium Chloride 20 mg in 50 mls @ 100 mls/hr 03/23/19 22:00 Pepcid 20 Mg Premixed Ivpb - IVPB BID HAIR Metoprolol Tartrate 5 mg 03/23/19 12:29 Lopressor Injection - IVPB Q4H PRN HYPERTENSION ASSESSMENT/PLAN: Visit type - Emergency Visit Emergency Visit: Yes ED Registration Date: 03/23/19 Care time: The patient presented to the Emergency Department on the above date and was hospitalized for further evaluation of their emergent condition. - New Patient This patient is new to me today: Yes Date on this admission: 03/23/19 - Critical Care Critical Care patient: Yes Total Critical Care Time (in minutes): 36 Critical Care Statement: The care of this patient involved high complexity decision making to prevent further life threatening deterioration of the patient 's condition and/or to evaluate & treat vital organ system(s) failure or risk of failure. ATTENDING PHYSICIAN STATEMENT I saw and evaluated the patient. I reviewed the resident's note and discussed the case with the resident. I agree with the resident's findings and plan as documented. SUBJECTIVE: OBJECTIVE: ASSESSMENT AND PLAN:
--- NOTE | 2019-03-23 17:27 | CONSULT ---
Consultation: REQUESTING PROVIDER: CONSULT REQUEST: We have been asked to medically evaluate this patient for ICU admission. HISTORY OF PRESENT ILLNESS: 83 y/o/m with PMHx of CAD (4 prior MIs with bypass), HTN, HLD, CVA, and DM who arrived to the ED with complaints of feeling like something was stuck in his throat. Patient was complaining that he had difficulty breathing and swallowing in the ED. However, patient was able to swallow despite some discomfort while in the ED. His symptoms started after he had [place] food and has had a similar episode in the past after eating the same food. Earlier today, RO[facility]STER was called to evaluate patient as he was complaining of something stuck in his throat again. He was noted to have a swollen uvula and saliva pooling in the back of his throat. Patient was oxygenating well at this time. ICU was consulted to monitor the patient due to tenuous airway. Speech/ Swallow eval noted patient to also have pooling of saliva in posterior pharynx without respiratory distress. Recommended to keep patient NPO. ENT consult was placed by primary team. Patient denies any chest pain, SOB, difficulty breathing, sore throat, cough, fever, chills, abd pain, or headache. REVIEW OF SYSTEMS: as per HPI PHYSICAL EXAMINATION Vital Signs - 24 hr 03/22/19 03/23/19 03/23/19 22:11 01:03 05:46 Temperature 98 F 98.4 F 98.2 F Pulse Rate 67 53 L Pulse Rate [ 56 L Left] Respiratory 24 H 18 17 Rate Blood Pressure 163/84 126/76 Blood Pressure 132/78 [Right Arm] O2 Sat by Pulse 98 98 97 Oximetry (%) 03/23/19 03/23/19 03/23/19 11:08 13:58 15:14 Temperature 98.3 F Pulse Rate 52 L Pulse Rate [ 68 Left] Respiratory 18 20 20 Rate Blood Pressure 142/81 Blood Pressure 132/82 [Right Arm] O2 Sat by Pulse 98 98 Oximetry (%) GENERAL: Awake, alert, and fully oriented, in no acute distress. HEAD: Normal with no signs of trauma. EYES: PERRL, EOMI, no scleral icterus EARS, NOSE, THROAT: Moist mucous membranes NECK: Normal range of motion, supple without lymphadenopathy, JVD, or masses. no tenderness on palpation. No stridor or carotid bruits auscultated. LUNGS: Breath sounds equal, clear to auscultation bilaterally. No wheezes, and no crackles. No accessory muscle use. HEART: RRR, normal s1, s2, no murmur noted ABDOMEN: Soft, nontender, not distended, normoactive bowel sounds, no guarding, no rebound, no masses EXTREMITIES: 2+ pulses, warm, well-perfused. No calf tenderness. No peripheral edema. NEUROLOGICAL: Cranial nerves II-XII intact. Normal speech. gait not observed SKIN: Warm, dry, normal turgor, no rashes or lesions noted. Laboratory Results - last 24 hr 03/22/19 03/22/19 23:24 23:24 WBC 8.8 RBC 4.08 Hgb 11.7 Hct 35.1 L MCV 85.9 MCH 28.7 MCHC 33.5 RDW 14.7 Plt Count 204 D MPV 10.5 Absolute Neuts (auto) 5.0 Neutrophils % 56.8 Lymphocytes % 28.8 Monocytes % 9.7 Eosinophils % 3.3 Basophils % 1.4 Nucleated RBC % 0 Sodium 139 Potassium 4.0 Chloride 107 Carbon Dioxide 24 Anion Gap 7 L BUN 19.9 H Creatinine 1.1 Est GFR (CKD-EPI)AfAm 72.07 Est GFR (CKD-EPI)NonAf 62.19 Random Glucose 114 H Calcium 9.5 Total Bilirubin 0.2 AST 31 ALT 36 Alkaline Phosphatase 47 Total Protein 7.7 Albumin 3.9 Active Medications Generic Name Dose Route Start Last Admin Trade Name Freq PRN Reason Stop Dose Admin Acetaminophen 650 mg 03/23/19 04:32 Tylenol - PO Q6H PRN PAIN LEVEL 4 - 6 Dexamethasone Sodium Phosphate 10 mg 03/23/19 11:45 03/23/19 12:19 Decadron Injection - IVPUSH 10 mg Q8H-IV HAIR Administration Diphenhydramine HCl 50 mg 03/23/19 13:00 03/23/19 12:40 Benadryl Injection - IVPUSH 50 mg Q4H HAIR Administration Heparin Sodium (Porcine) 5,000 unit 03/23/19 10:00 03/23/19 09:40 Heparin - SQ 5,000 unit BID HAIR Administration Sodium Chloride 1,000 mls @ 50 mls/hr 03/23/19 04:45 03/23/19 12:21 Normal Saline - IV 03/24/19 04:32 50 mls/hr ASDIR HAIR Administration Famotidine/Sodium Chloride 20 mg in 50 mls @ 100 mls/hr 03/23/19 22:00 Pepcid 20 Mg Premixed Ivpb - IVPB BID HAIR Metoprolol Tartrate 5 mg 03/23/19 12:29 Lopressor Injection - IVPB Q4H PRN HYPERTENSION ASSESSMENT/PLAN: 83 y/o/m with PMHx of CAD (4 prior MIs with bypass), HTN, HLD, CVA, and DM who arrived to the ED with complaints of feeling like something was stuck in his throat. Patient was sent to floors but decision was made to admit patient to ICU for airway monitoring. #Neuro - hx of CVA - AAOx3, monitor - Tylenol for pain control #Cardio - hx of CAD (4 prior MIs with bypass), HTN, HLD - Lopressor 5mg Q4Hr PRN for hypertension #ENT - patient c/o feeling of "something stuck in his throat" - denies difficulty breathing, SOB at this time - Dexamethasone, Diphenhydramine to protect airway - ENT called, spoke with Nurse, stated that they will not be coming in for consult. Recommended to transfer patient to tertiary care facility if concerned or follow up outpatient. - Epi given in ED #Pulm - maintain SpO2 >90% - on nasal canula #GI - no active issues - H&H stable #Endo - hx of DM - BGMs - HbA1c for morning labs #ID - afebrile, no white count. continue to monitor #Renal - BUN/Cr at 19.9/1.1. Monitor - monitor and replete lytes as needed #Prophylaxis - Heparin #FEN - NPO except meds due to concern for aspiration and/or choking - NS @50mls/hr #Dispo - ICU monitoring Visit type - Emergency Visit Emergency Visit: Yes ED Registration Date: 03/23/19 Care time: The patient presented to the Emergency Department on the above date and was hospitalized for further evaluation of their emergent condition. - New Patient This patient is new to me today: Yes Date on this admission: 03/23/19 - Critical Care Critical Care patient: Yes Total Critical Care Time (in minutes): 36 Critical Care Statement: The care of this patient involved high complexity decision making to prevent further life threatening deterioration of the patient 's condition and/or to evaluate & treat vital organ system(s) failure or risk of failure. ATTENDING PHYSICIAN STATEMENT I saw and evaluated the patient. I reviewed the resident's note and discussed the case with the resident. I agree with the resident's findings and plan as documented. SUBJECTIVE: OBJECTIVE: ASSESSMENT AND PLAN:
[2019-03-23] MEDS ORDERED: ATORVASTATIN CA 20 MG TABLET (FP) PO SCH (22:00)
[2019-03-23] MEDS ORDERED: FAMOTIDINE 20 MG/50 ML IVPB 20 MG/50 ML MG IVPB SCH (22:00)
--- NOTE | 2019-03-23 23:27 | PN ---
Progress Note (short form) - Note Progress Note: Condition 10 called on patient tonight because he was being aggressive towards nursing staff. Spoke with patient in [place] with co-resident. Patient stated that he was unhappy with care, felt that he was not being treated with respect and wanted to eat. Explained to patient that he is receiving proper medical care and that we are monitoring him to make sure his airway is not compromised. Also explained that he is NPO status due to concern for aspiration/chocking. Patient stated that he would like to leave and did not want to stay. Attempted to calm patient and explain that it would be in his best interest to stay for further monitoring. Contacted family and discussed concerns with them, family stated they will talk to him as well. Patient still upset and unwilling to stay in hospital. Requesting to sign out AMA. Patient oriented to self, place, situation, date. Patient able to vividly explain the events of the day. Has clear speech. Normal gait. Capable of making his own decisions. Explained risks of refusing treatment to patient, including risk of airway compromise, difficulty breathing, . Patient stated he understood the risks of signing out AMA. Contacted family to make sure that they are aware that patient left the ICU. Family stated that they would take care of him.
[2019-03-24 01:28] VITALS: BP 132/76; PULSE 56
== END 2019-03-23 23:15 | disposition left against medical advice (07) | DRG 916 ==
LOC: JER 22:09 → JERBED 03-23 01:03 → OBSVTOIN 03-23 06:27 → J5S 03-23 12:12 → JICU 03-23 13:52
PROVIDERS: ADMIT Family Medicine; ATTEND Family Medicine
DX: T78.3XXA Angioneurotic edema, initial encounter (principal); I25.10 Atherosclerotic heart disease of native coronary artery without angina pectoris; I10 Essential (primary) hypertension; E78.5 Hyperlipidemia, unspecified; R13.10 Dysphagia, unspecified; E11.9 Type 2 diabetes mellitus without complications; Z86.73 Personal history of transient ischemic attack (TIA), and cerebral infarction without residual deficits; Z95.1 Presence of aortocoronary bypass graft; Z87.891 Personal history of nicotine dependence
CPT/HCPCS: 36415; 80053; 85025; 93005; 93010; 99284-25; G0378; J1100; J1644; J7030

== ENCOUNTER 2020-08-31 23:42 | Emergency (ER) | payer OTHER ==
[2020-09-01 00:17] VITALS: TEMP 97.1; BMI 30.2
[2020-09-01 00:33] VITALS: BP 148/83; PULSE 53
== END 2020-09-01 03:04 | disposition home or self-care (01) ==
LOC: JER 23:42
DX: I10 Essential (primary) hypertension (principal)
CPT/HCPCS: 93005; 93010; 99284-25

== ENCOUNTER 2020-11-13 11:24 | Emergency (ER) | payer OTHER ==
[2020-11-13 11:47] VITALS: BMI 25.0
[2020-11-13] MEDS ORDERED: LIDOCAINE 5% TOPICAL PATCH TP ONE (12:28)
[2020-11-13] MEDS ORDERED: ACETAMINOPHEN 325 MG TABLET (FP) PO ONE (12:28)
[2020-11-13] MEDS ORDERED: LIDOCAINE 5% TOPICAL PATCH ONE (13:05)
[2020-11-13] MEDS ORDERED: ACETAMINOPHEN 325 MG TABLET (FP) ONE (13:05)
[2020-11-13] MEDS ORDERED: METHOCARBAMOL 500 MG TABLET PO ONE (13:50)
[2020-11-13] MEDS ORDERED: METHOCARBAMOL 500 MG TABLET ONE (14:17)
[2020-11-13 15:26] VITALS: BP 151/85; PULSE 57; TEMP 97.5
[2020-11-13] MEDS ORDERED: LIDOCAINE PATCH REMOVAL MC ONE (22:00)
== END 2020-11-13 17:15 | disposition home or self-care (01) ==
LOC: JER 11:24
DX: M99.71 Connective tissue and disc stenosis of intervertebral foramina of cervical region (principal); M48.02 Spinal stenosis, cervical region
CPT/HCPCS: 72125-TC; 73030-TC-RT-FY; 99284-25

== ENCOUNTER 2021-03-19 22:22 | Inpatient (IN) | payer OTHER ==
[2021-03-19] MEDS ORDERED: LABETALOL HCL 5 MG/1 ML (100MG/20 ML VIAL) IVPUSH ONE (22:37)
[2021-03-19] MEDS ORDERED: hydrALAZINE HCL 20 MG/ML VIAL IVPUSH ONE (23:03)
[2021-03-19] MEDS ORDERED: ATORVASTATIN CA 80 MG TABLET (FP) PO ONE (23:11)
[2021-03-19] MEDS ORDERED: ASPIRIN 325 MG ENTERIC COATED TABLET (FP) ONE (23:27)
[2021-03-19] MEDS ORDERED: hydrALAZINE HCL 20 MG/ML VIAL ONE (23:27)
[2021-03-19] MEDS ORDERED: ATORVASTATIN CA 80 MG TABLET (FP) ONE (23:27)
[2021-03-19] MEDS: SODIUM CHLORIDE 1,000 ML IV SCH (23:32)
[2021-03-19 23:49] LABS: BASO % 1.1 % (0-2.0); EOS % 2.8 % (0-4.5); HEMOGLOBIN 12.6 GM/dL (11.7-16.9); MCH 28.3 pg (25.7-33.7); MCHC 34.1 g/dl (32.0-35.9); MEAN CELL VOLUME 82.8 fl (80-96); MEAN PLT VOLUME 9.8 fl (7.5-11.1); MONO % 11.6 % (3.8-10.2); NEUT % 57.5 % (42.8-82.8); PLATELET COUNT 123 10^3/uL (134-434); RBC 4.47 M/mm3 (4.00-5.60); RDW 14.6 % (11.9-15.9); WHITE BLOOD COUNT 8.7 K/mm3 (4.0-10.0)
[2021-03-19 23:58] LABS: INR 1.04 (0.83-1.09); PROTHROMBIN TIME (PATIENT) 12.2 SEC (9.7-13.0)
[2021-03-20 00:02] LABS: CHLORIDE 107 mmol/L (98-107); SODIUM 138 mmol/L (136-145)
[2021-03-20 00:04] LABS: CALCIUM 8.4 mg/dL (8.5-10.1)
[2021-03-20 00:05] LABS: ALBUMIN 3.3 g/dl (3.4-5.0); ANION GAP 6 MMOL/L (8-16); BLOOD UREA NITROGEN 16.4 mg/dL (7-18); CO2 25 mmol/L (21-32); GLUCOSE,RANDOM 111 mg/dL (74-106)
[2021-03-20 00:08] LABS: CHOLESTEROL 184 mg/dL (50-200); SGOT/AST 36 U/L (15-37); SGPT/ALT 50 U/L (13-61); TRIGLYCERIDES 99 mg/dL (0-150)
[2021-03-20 00:09] LABS: BILIRUBIN,TOTAL 0.3 mg/dL (0.2-1); LDL CHOLESTEROL (ONLY SJRH) 127 mg/dL (5-100)
[2021-03-20 00:10] LABS: HDL CHOLESTEROL 31 mg/dL (40-60); TOT PROT 6.9 g/dl (6.4-8.2)
[2021-03-20 00:11] LABS: ALK PHOS 64 U/L (45-117)
[2021-03-20] MEDS ORDERED: FLUTICASONE PROP 0.05% 16 GM NASAL SPRAY NS ONE (00:21)
[2021-03-20] MEDS ORDERED: POLYETHYLENE GLYCOL (HEALTHYLAX) 3350 17 GM PACKET PO PRN (01:54)
[2021-03-20] MEDS ORDERED: ACETAMINOPHEN 325 MG TABLET (FP) PO PRN (01:54)
[2021-03-20] MEDS ORDERED: ASPIRIN 325 MG TABLET PO ONE ×2 (02:11→23:11)
[2021-03-20 03:29] LABS: PH,URINE 6.5 (5.0-8.0); URINE APPEARANCE CLEAR; URINE BILIRUBIN NEGATIVE (NEGATIVE); URINE COLOR YELLOW; URINE GLUCOSE (UA) NEGATIVE (NEGATIVE); URINE KETONE NEGATIVE (NEGATIVE); URINE LEUK ESTERASE NEGATIVE (NEGATIVE); URINE NITRITE NEGATIVE (NEGATIVE); URINE PROTEIN NEGATIVE (NEGATIVE); URINE UROBILINOGEN 0.2 mg/dL (0.2-1.0)
[2021-03-20 04:09] VITALS: BMI 26.6
[2021-03-20] MEDS: INSULIN SLIDING SCALE (NOVOLOG) 1 VIAL SQ SCH ×4 (07:25→21:17)
[2021-03-20 08:12] LABS: BASO % 1.2 % (0-2.0); EOS % 1.5 % (0-4.5); HEMOGLOBIN 12.3 GM/dL (11.7-16.9); LYMPH % 16.8 % (8-40); MCH 28.3 pg (25.7-33.7); MCHC 34.2 g/dl (32.0-35.9); MEAN CELL VOLUME 82.6 fl (80-96); MEAN PLT VOLUME 11.2 fl (7.5-11.1); MONO % 11.2 % (3.8-10.2); NEUT % 69.3 % (42.8-82.8); PLATELET COUNT 137 10^3/uL (134-434); RBC 4.36 M/mm3 (4.00-5.60); RDW 14.4 % (11.9-15.9); WHITE BLOOD COUNT 8.2 K/mm3 (4.0-10.0)
[2021-03-20 08:35] LABS: CALCIUM 8.7 mg/dL (8.5-10.1)
[2021-03-20 08:37] LABS: MAGNESIUM 2.3 mg/dL (1.8-2.4)
[2021-03-20 08:38] LABS: BLOOD UREA NITROGEN 11.8 mg/dL (7-18)
[2021-03-20 08:39] LABS: CREATININE 0.8 mg/dL (0.55-1.3)
[2021-03-20] MEDS: TAMSULOSIN HCL 0.4 MG CAP PO SCH (08:53)
[2021-03-20] MEDS: MONTELUKAST NA 10 MG TABLET PO SCH (09:23)
[2021-03-20] MEDS: ASPIRIN 81 MG CHEWABLE TABLETS PO SCH (09:23)
[2021-03-20] MEDS: METOPROLOL TARTRATE 25 MG TABLET (FP) PO SCH ×2 (09:23→21:17)
[2021-03-20] MEDS: ENOXAPARIN NA (PORCINE) 40 MG/0.4 ML DISP.SYRIN SQ SCH (09:23)
[2021-03-20] MEDS: FLUTICASONE/UMECLIDIN/VILANTER(200-62.5-25 TRELEGY ELLIPTA) INAHLER IH SCH (09:23)
[2021-03-20] MEDS: amLODIPine BESYLATE 5 MG TABLET (FP) PO SCH (09:23)
[2021-03-20] MEDS ORDERED: VALSARTAN 40 MG TABLET PO SCH (10:00)
[2021-03-20] MEDS ORDERED: ASPIRIN COATED 81 MG TABLET.EC PO SCH (10:00)
[2021-03-20] MEDS ORDERED: ASPIRIN 325 MG ENTERIC COATED TABLET (FP) PO SCH (10:00)
[2021-03-20] MEDS ORDERED: FLU VACC QS2021-22(6MOS UP)/PF 60 MCG/0.5 ML SYRINGE IM ONE (10:00)
[2021-03-20] MEDS: VALSARTAN 40 MG TABLET PO SCH (15:23)
[2021-03-20] MEDS ORDERED: ATORVASTATIN CA 40 MG TABLET (FP) PO SCH (22:00)
[2021-03-21] MEDS: SODIUM CHLORIDE 1,000 ML IV SCH (04:59)
[2021-03-21] MEDS: INSULIN SLIDING SCALE (NOVOLOG) 1 VIAL SQ SCH ×3 (06:01→17:19)
[2021-03-21] MEDS ORDERED: PT OWN MED DRAWER 7, Y5N ONE (09:51)
[2021-03-21] MEDS: VALSARTAN 40 MG TABLET PO SCH (10:04)
[2021-03-21] MEDS: MONTELUKAST NA 10 MG TABLET PO SCH (10:04)
[2021-03-21] MEDS: ASPIRIN 81 MG CHEWABLE TABLETS PO SCH (10:04)
[2021-03-21] MEDS: amLODIPine BESYLATE 5 MG TABLET (FP) PO SCH (10:04)
[2021-03-21] MEDS: TAMSULOSIN HCL 0.4 MG CAP PO SCH (10:04)
[2021-03-21] MEDS: FLUTICASONE/UMECLIDIN/VILANTER(200-62.5-25 TRELEGY ELLIPTA) INAHLER IH SCH (10:05)
[2021-03-21] MEDS: ENOXAPARIN NA (PORCINE) 40 MG/0.4 ML DISP.SYRIN SQ SCH (10:05)
[2021-03-21] MEDS: METOPROLOL TARTRATE 25 MG TABLET (FP) PO SCH (14:03)
[2021-03-21 17:22] VITALS: BP 160/85; PULSE 61; TEMP 98.1
== END 2021-03-21 18:30 | disposition home or self-care (01) | DRG 305 ==
LOC: JER 22:22 → JERBED 23:14 → J4S 03-20 03:41
PROVIDERS: ADMIT Internal Medicine; ATTEND Family Medicine
DX: I16.0 Hypertensive urgency (principal); E11.9 Type 2 diabetes mellitus without complications; I25.10 Atherosclerotic heart disease of native coronary artery without angina pectoris; E78.5 Hyperlipidemia, unspecified; R42 Dizziness and giddiness; I25.2 Old myocardial infarction; R20.2 Paresthesia of skin; I44.0 Atrioventricular block, first degree; R00.1 Bradycardia, unspecified; R29.810 Facial weakness; Z86.73 Personal history of transient ischemic attack (TIA), and cerebral infarction without residual deficits; Z95.5 Presence of coronary angioplasty implant and graft
CPT/HCPCS: 36415; 70450-TC; 70551-TC; 71045-TC-FY; 80048; 80053; 80061; 81003; 82550; 82962; 83036; 83735; 84479; 84484; 85025; 85610; 85730; 90686; 93005; 93010; 93880-TC; 99285-25; C9803; G0008; U0003; U0005

== ENCOUNTER 2021-03-24 09:30 | Emergency (ER) | payer OTHER ==
[2021-03-24 09:39] VITALS: TEMP 98.6; BMI 25.8
[2021-03-24 10:51] LABS: BASO % 0.9 % (0-2.0); EOS % 3.1 % (0-4.5); HEMOGLOBIN 13.2 GM/dL (11.7-16.9); LYMPH % 22.7 % (8-40); MCH 28.1 pg (25.7-33.7); MCHC 33.8 g/dl (32.0-35.9); MEAN PLT VOLUME 11.2 fl (7.5-11.1); NEUT % 60.3 % (42.8-82.8); PLATELET COUNT 151 10^3/uL (134-434); RDW 14.5 % (11.9-15.9); WHITE BLOOD COUNT 7.6 K/mm3 (4.0-10.0)
[2021-03-24 12:11] LABS: ALBUMIN 3.4 g/dl (3.4-5.0); ALK PHOS 58 U/L (45-117); ANION GAP 5 MMOL/L (8-16); BILIRUBIN,TOTAL 0.5 mg/dL (0.2-1); BLOOD UREA NITROGEN 16.5 mg/dL (7-18); CALCIUM 8.9 mg/dL (8.5-10.1); CHLORIDE 111 mmol/L (98-107); CO2 28 mmol/L (21-32); GLUCOSE,RANDOM 105 mg/dL (74-106); SGOT/AST 43 U/L (15-37); SGPT/ALT 59 U/L (13-61); SODIUM 144 mmol/L (136-145); TOT PROT 7.2 g/dl (6.4-8.2)
[2021-03-24 13:03] VITALS: BP 153/95; PULSE 98
== END 2021-03-24 15:31 | disposition home or self-care (01) ==
LOC: JER 09:30
DX: R53.1 Weakness (principal); R42 Dizziness and giddiness
CPT/HCPCS: 36415; 70450-TC; 71045-TC-FY; 80053; 82550; 83735; 84484; 85025; 93005; 93010; 99284-25; C9803; U0003; U0005

== ENCOUNTER 2022-01-27 21:24 | Inpatient (IN) | payer OTHER ==
[2022-01-27] MEDS ORDERED: MECLIZINE HCL 25 MG TABLET (FP) PO ONE (22:17)
[2022-01-27 22:23] LABS: BASO % 1.4 % (0-2.0); EOS % 3.7 % (0-4.5); HEMATOCRIT 37.7 % (35.4-49); HEMOGLOBIN 12.6 GM/dL (11.7-16.9); LYMPH % 33.1 % (8-40); MCH 28.5 pg (25.7-33.7); MCHC 33.4 g/dl (32.0-35.9); MEAN CELL VOLUME 85.5 fl (80-96); MEAN PLT VOLUME 10.2 fl (7.5-11.1); MONO % 12.2 % (3.8-10.2); NEUT % 49.6 % (42.8-82.8); PLATELET COUNT 146 10^3/uL (134-434); RBC 4.41 M/mm3 (4.00-5.60); RDW 14.6 % (11.9-15.9); WHITE BLOOD COUNT 6.5 K/mm3 (4.0-10.0)
[2022-01-27 22:32] LABS: INR 1.09 (0.83-1.09); PROTHROMBIN TIME (PATIENT) 12.5 SEC (9.7-13.0)
[2022-01-27 22:35] LABS: ACTIVATED PTT 28.3 SECONDS (25.2-36.5)
[2022-01-27 22:51] LABS: ALBUMIN 3.3 g/dl (3.4-5.0); CALCIUM 8.7 mg/dL (8.5-10.1); MAGNESIUM 2.4 mg/dL (1.8-2.4)
[2022-01-27 22:54] LABS: CREATININE 0.9 mg/dL (0.55-1.3)
[2022-01-27 22:56] LABS: BILIRUBIN,TOTAL 0.3 mg/dL (0.2-1); TOT PROT 6.7 g/dl (6.4-8.2)
[2022-01-27] MEDS ORDERED: MECLIZINE HCL 25 MG TABLET (FP) ONE (23:06)
[2022-01-28] MEDS ORDERED: ATROPINE SULFATE 1 MG/10 ML DISP.SYRIN IVPUSH ONE (00:53)
[2022-01-28] MEDS ORDERED: ATROPINE SULFATE 1 MG/10 ML DISP.SYRIN ONE (01:06)
[2022-01-28] MEDS ORDERED: amLODIPine BESYLATE 5 MG TABLET (FP) PO ONE (01:42)
[2022-01-28] MEDS ORDERED: amLODIPine BESYLATE 5 MG TABLET (FP) ONE ×2 (02:02→08:25)
[2022-01-28] MEDS ORDERED: VALSARTAN 160 MG TABLET PO ONE (03:37)
[2022-01-28] MEDS ORDERED: hydrALAZINE HCL 20 MG/ML VIAL IVPUSH ONE (03:37)
[2022-01-28] MEDS ORDERED: VALSARTAN 80 MG TABLET ONE (04:01)
[2022-01-28] MEDS ORDERED: ALBUTEROL SO4 HFA INHALER IH PRN (05:31)
[2022-01-28] MEDS ORDERED: INSULIN SLIDING SCALE (NOVOLOG) 1 VIAL SQ SCH (07:00)
[2022-01-28 07:17] LABS: BASO % 1.1 % (0-2.0); EOS % 3.5 % (0-4.5); HEMATOCRIT 38.3 % (35.4-49); HEMOGLOBIN 12.9 GM/dL (11.7-16.9); LYMPH % 24.5 % (8-40); MCH 28.6 pg (25.7-33.7); MCHC 33.8 g/dl (32.0-35.9); MEAN CELL VOLUME 84.8 fl (80-96); MEAN PLT VOLUME 10.9 fl (7.5-11.1); MONO % 10.6 % (3.8-10.2); NEUT % 60.3 % (42.8-82.8); PLATELET COUNT 147 10^3/uL (134-434); RBC 4.51 M/mm3 (4.00-5.60); RDW 14.6 % (11.9-15.9)
[2022-01-28 07:43] LABS: ALBUMIN 3.3 g/dl (3.4-5.0); CALCIUM 8.7 mg/dL (8.5-10.1); MAGNESIUM 2.7 mg/dL (1.8-2.4)
[2022-01-28 07:46] LABS: CREATININE 0.9 mg/dL (0.55-1.3); PHOSPHOROUS 3.1 mg/dL (2.5-4.9)
[2022-01-28 07:47] LABS: BILIRUBIN,TOTAL 0.5 mg/dL (0.2-1); TOT PROT 6.7 g/dl (6.4-8.2)
[2022-01-28] MEDS ORDERED: HYDROCHLOROTHIAZIDE 25 MG TABLET (FP) ONE (08:25)
[2022-01-28] MEDS ORDERED: TAMSULOSIN HCL 0.4 MG CAP ONE (08:25)
[2022-01-28] MEDS: HYDROCHLOROTHIAZIDE 12.5 MG CAPSULE (FP) PO SCH (08:41)
[2022-01-28] MEDS: TAMSULOSIN HCL 0.4 MG CAP PO SCH (08:41)
[2022-01-28] MEDS: amLODIPine BESYLATE 5 MG TABLET (FP) PO SCH (08:41)
[2022-01-28] MEDS ORDERED: HYDROCHLOROTHIAZIDE 12.5 MG CAPSULE (FP) PO SCH (10:00)
[2022-01-28] MEDS ORDERED: VALSARTAN 160 MG TABLET PO SCH ×2 (10:00→22:00)
[2022-01-28] MEDS ORDERED: amLODIPine BESYLATE 5 MG TABLET (FP) PO SCH (10:00)
[2022-01-28] MEDS ORDERED: FLUTICASONE FUROATE IH SCH (10:00)
[2022-01-28] MEDS: ENOXAPARIN NA (PORCINE) 40 MG/0.4 ML DISP.SYRIN SQ SCH (11:02)
[2022-01-28] MEDS: EZETIMIBE 10 MG TABLET (FP) PO SCH (11:03)
[2022-01-28 12:35] VITALS: BMI 25.5
[2022-01-28] MEDS ORDERED: ATORVASTATIN CA 20 MG TABLET (FP) PO SCH (22:00)
[2022-01-28] MEDS ORDERED: MONTELUKAST NA 10 MG TABLET PO SCH (22:00)
[2022-01-29 01:53] VITALS: RESP 18
[2022-01-29] MEDS: amLODIPine BESYLATE 5 MG TABLET (FP) PO SCH (06:02)
[2022-01-29] MEDS: HYDROCHLOROTHIAZIDE 12.5 MG CAPSULE (FP) PO SCH (06:02)
[2022-01-29 06:39] LABS: HEMATOCRIT 39.4 % (35.4-49); MEAN PLT VOLUME 10.9 fl (7.5-11.1); PLATELET COUNT 150 10^3/uL (134-434); RBC 4.64 M/mm3 (4.00-5.60); RDW 14.4 % (11.9-15.9); WHITE BLOOD COUNT 7.5 K/mm3 (4.0-10.0)
[2022-01-29 07:01] LABS: ALBUMIN 0.3 g/dl (3.4-5.0); BLOOD UREA NITROGEN 12.7 mg/dL (7-18)
[2022-01-29 07:04] LABS: PHOSPHOROUS 3.1 mg/dL (2.5-4.9)
[2022-01-29 07:05] LABS: TOT PROT 6.9 g/dl (6.4-8.2)
[2022-01-29 07:06] LABS: BILIRUBIN,TOTAL 0.5 mg/dL (0.2-1)
[2022-01-29] MEDS ORDERED: MAGNESIUM SULF 50% (8.12 MEQ/2 ML-1 GM VIAL) IVPB ONE ×2 (07:13→07:18)
[2022-01-29] MEDS ORDERED: MAGNESIUM SULF 50% (8.12 MEQ/2 ML-1 GM VIAL) IVPB SCH (07:30)
[2022-01-29 08:23] LABS: MAGNESIUM 2.3 mg/dL (1.8-2.4)
[2022-01-29] MEDS: EZETIMIBE 10 MG TABLET (FP) PO SCH (09:01)
[2022-01-29] MEDS: TAMSULOSIN HCL 0.4 MG CAP PO SCH (09:01)
[2022-01-29] MEDS: ENOXAPARIN NA (PORCINE) 40 MG/0.4 ML DISP.SYRIN SQ SCH (09:01)
[2022-01-29] MEDS ORDERED: SODIUM CHLORIDE 0.9% 1000 ML INFUS.BAG IV ONE (09:24)
[2022-01-29 13:13] VITALS: BP 104/64; PULSE 104; TEMP 98.3
[2022-01-29 13:35] LABS: BLOOD UREA NITROGEN 16.4 mg/dL (7-18); CALCIUM 8.7 mg/dL (8.5-10.1); MAGNESIUM 2.3 mg/dL (1.8-2.4)
[2022-01-29 13:38] LABS: CREATININE 0.9 mg/dL (0.55-1.3)
[2022-01-29 13:40] LABS: BILIRUBIN,TOTAL 0.5 mg/dL (0.2-1); TOT PROT 6.7 g/dl (6.4-8.2)
[2022-01-29 13:42] LABS: ALBUMIN 3.3 g/dl (3.4-5.0)
== END 2022-01-29 18:47 | disposition home or self-care (01) | DRG 305 ==
LOC: JER 21:24 → MERGE 01-28 00:56 → JERBED 01-28 00:56 → J4W 01-28 10:39 → J4S 01-28 23:11
PROVIDERS: ADMIT Internal Medicine; ATTEND Internal Medicine
DX: I16.0 Hypertensive urgency (principal); J98.11 Atelectasis; R00.1 Bradycardia, unspecified; I44.1 Atrioventricular block, second degree; R42 Dizziness and giddiness; E78.00 Pure hypercholesterolemia, unspecified; R73.9 Hyperglycemia, unspecified; N40.0 Benign prostatic hyperplasia without lower urinary tract symptoms; J45.909 Unspecified asthma, uncomplicated
CPT/HCPCS: 0241U-QW; 36415; 70450-TC; 71046-TC-FY; 80053; 80061; 82550; 83036; 83735; 84100; 84439; 84443; 84484; 85025; 85027; 85610; 85730; 87086; 93005; 93010; 93306-TC; 93880-TC; 99285-25

== ENCOUNTER 2022-12-05 00:35 | Emergency (ER) | payer OTHER ==
[2022-12-05 00:44] VITALS: BP 131/78; PULSE 74; RESP 18; TEMP 97.3; BMI 24.3
[2022-12-05 01:37] LABS: BASO % 2.1 % (0-2.0); EOS % 3.7 % (0-4.5); HEMATOCRIT 34.5 % (35.4-49); HEMOGLOBIN 11.6 GM/dL (11.7-16.9); LYMPH % 31.4 % (8-40); MCH 27.6 pg (25.7-33.7); MCHC 33.5 g/dl (32.0-35.9); MEAN CELL VOLUME 82.3 fl (80-96); MEAN PLT VOLUME 10.6 fl (7.5-11.1); MONO % 13.6 % (3.8-10.2); NEUT % 49.2 % (42.8-82.8); PLATELET COUNT 156 10^3/uL (134-434); RBC 4.19 M/mm3 (4.00-5.60); RDW 15.1 % (11.9-15.9); WHITE BLOOD COUNT 6.7 K/mm3 (4.0-10.0)
[2022-12-05 01:44] LABS: INR 1.12 (0.83-1.09)
[2022-12-05 01:47] LABS: ACTIVATED PTT 31.1 SECONDS (25.2-36.5)
[2022-12-05 01:55] LABS: POTASSIUM 3.8 mmol/L (3.5-5.1)
[2022-12-05 01:59] LABS: CALCIUM 8.8 mg/dL (8.5-10.1)
[2022-12-05 02:00] LABS: ALBUMIN 3.5 g/dl (3.4-5.0); BLOOD UREA NITROGEN 20.2 mg/dL (7-18); MAGNESIUM 2.1 mg/dL (1.8-2.4)
[2022-12-05 02:02] LABS: CREATININE 1.2 mg/dL (0.55-1.3)
[2022-12-05 02:04] LABS: BILIRUBIN,TOTAL 0.5 mg/dL (0.2-1); TOT PROT 7.2 g/dl (6.4-8.2)
[2022-12-05 02:08] LABS: N-TERMINAL BNP 300.8 pg/ml (5-450)
== END 2022-12-05 04:09 | disposition home or self-care (01) ==
LOC: JER 00:35
DX: R51.9 Headache, unspecified (principal); R42 Dizziness and giddiness; M54.9 Dorsalgia, unspecified; W18.2XXA Fall in (into) shower or empty bathtub, initial encounter; Y93.E1 Activity, personal bathing and showering; Y92.002 Bathroom of unspecified non-institutional (private) residence as the place of occurrence of the external cause; Z20.822 Contact with and (suspected) exposure to COVID-19
CPT/HCPCS: 0241U-QW; 36415; 70450-TC; 71045-TC-FY; 72125-TC; 80053; 82550; 83735; 83880; 84484; 85025; 85610; 85730; 86850; 86900; 86901; 93005; 93010; 99285-25

== ENCOUNTER 2023-01-16 18:27 | Emergency (ER) | payer OTHER ==
[2023-01-16 18:33] VITALS: RESP 18; BMI 24.3
[2023-01-16] MEDS ORDERED: SODIUM CHLORIDE 0.9% 500 ML INFUS.BAG IV ONE (19:50)
[2023-01-16 20:41] LABS: BASO % 1.6 % (0-2.0); EOS % 2.9 % (0-4.5); HEMATOCRIT 37.4 % (35.4-49); HEMOGLOBIN 12.9 GM/dL (11.7-16.9); LYMPH % 27.3 % (8-40); MCH 28.6 pg (25.7-33.7); MCHC 34.4 g/dl (32.0-35.9); MEAN CELL VOLUME 83.2 fl (80-96); MEAN PLT VOLUME 10.3 fl (7.5-11.1); MONO % 14.1 % (3.8-10.2); NEUT % 54.1 % (42.8-82.8); PLATELET COUNT 149 10^3/uL (134-434); RDW 15.3 % (11.9-15.9); WHITE BLOOD COUNT 6.6 K/mm3 (4.0-10.0)
[2023-01-16 20:47] LABS: INR 1.12 (0.83-1.09)
[2023-01-16 20:49] LABS: ACTIVATED PTT 30.8 SECONDS (25.2-36.5)
[2023-01-16 21:10] LABS: POTASSIUM 3.8 mmol/L (3.5-5.1)
[2023-01-16 21:13] LABS: ALBUMIN 3.8 g/dl (3.4-5.0); MAGNESIUM 1.9 mg/dL (1.8-2.4)
[2023-01-16 21:16] LABS: CREATININE 1.1 mg/dL (0.55-1.3)
[2023-01-16 21:18] LABS: BILIRUBIN,TOTAL 0.5 mg/dL (0.2-1); TOT PROT 7.8 g/dl (6.4-8.2)
[2023-01-16 21:18] LABS: PH,URINE 5.5 (5.0-8.0); URINE APPEARANCE CLEAR; URINE BILIRUBIN NEGATIVE (NEGATIVE); URINE COLOR YELLOW; URINE GLUCOSE (UA) NEGATIVE (NEGATIVE); URINE KETONE NEGATIVE (NEGATIVE); URINE LEUK ESTERASE NEGATIVE (NEGATIVE); URINE NITRITE NEGATIVE (NEGATIVE); URINE PROTEIN TRACE (NEGATIVE); URINE UROBILINOGEN 0.2 mg/dL (0.2-1.0)
[2023-01-16 23:33] VITALS: BP 168/95; PULSE 64; TEMP 97.8
== END 2023-01-16 23:52 | disposition home or self-care (01) ==
LOC: JER 18:27
DX: R19.7 Diarrhea, unspecified (principal); R53.1 Weakness; R06.02 Shortness of breath
CPT/HCPCS: 36415; 74177-TC; 80053; 81003; 83690; 83735; 85025; 85610; 85730; 87086; 99285-25

== ENCOUNTER 2023-01-30 19:44 | Emergency (ER) | payer OTHER ==
[2023-01-30 19:58] VITALS: BP 152/82; PULSE 65; RESP 18; TEMP 97.4; BMI 24.3
[2023-01-30] MEDS ORDERED: SODIUM CHLORIDE 0.9% 500 ML INFUS.BAG IV ONE (21:04)
[2023-01-30] MEDS ORDERED: ACETAMINOPHEN 1000 MG/100 ML BAG IVPB ONE (21:04)
[2023-01-30] MEDS ORDERED: ACETAMINOPHEN INJECTION 100 ML IVPB ONE (21:12)
[2023-01-30 21:32] LABS: BASO % 1.3 % (0-2.0); EOS % 3.4 % (0-4.5); HEMATOCRIT 34.3 % (35.4-49); HEMOGLOBIN 11.7 GM/dL (11.7-16.9); LYMPH % 33.8 % (8-40); MCH 28.4 pg (25.7-33.7); MCHC 34.1 g/dl (32.0-35.9); MEAN CELL VOLUME 83.3 fl (80-96); MEAN PLT VOLUME 10.9 fl (7.5-11.1); MONO % 14.2 % (3.8-10.2); NEUT % 47.3 % (42.8-82.8); PLATELET COUNT 131 10^3/uL (134-434); RBC 4.11 M/mm3 (4.00-5.60); RDW 15.1 % (11.9-15.9); WHITE BLOOD COUNT 6.5 K/mm3 (4.0-10.0)
[2023-01-30 22:18] LABS: POTASSIUM 3.8 mmol/L (3.5-5.1)
[2023-01-30 22:20] LABS: ALBUMIN 3.3 g/dl (3.4-5.0); BLOOD UREA NITROGEN 15.6 mg/dL (7-18); CALCIUM 8.7 mg/dL (8.5-10.1); MAGNESIUM 2.2 mg/dL (1.8-2.4)
[2023-01-30 22:24] LABS: CREATININE 1.2 mg/dL (0.55-1.3)
[2023-01-30 22:25] LABS: BILIRUBIN,TOTAL 0.3 mg/dL (0.2-1); TOT PROT 6.9 g/dl (6.4-8.2)
== END 2023-01-30 22:57 | disposition home or self-care (01) ==
LOC: JER 19:44
PROC: 3E033NZ Introduction of Analgesics, Hypnotics, Sedatives into Peripheral Vein, Percutaneous Approach (ICD-10-PCS; principal; 2023-01-30)
DX: R19.7 Diarrhea, unspecified (principal); Z20.822 Contact with and (suspected) exposure to COVID-19
CPT/HCPCS: 0241U-QW; 36415; 80053; 83735; 85025; 96374; 99284-25

== ENCOUNTER 2023-02-03 21:20 | Observation (INO) | payer OTHER ==
[2023-02-03] MEDS ORDERED: SODIUM CHLORIDE 1,000 ML IV SCH (22:00)
[2023-02-03 22:48] LABS: BASO % 1.5 % (0-2.0); EOS % 4.4 % (0-4.5); HEMATOCRIT 32.1 % (35.4-49); HEMOGLOBIN 10.9 GM/dL (11.7-16.9); LYMPH % 30.5 % (8-40); MCH 28.3 pg (25.7-33.7); MCHC 33.9 g/dl (32.0-35.9); MEAN CELL VOLUME 83.4 fl (80-96); MEAN PLT VOLUME 11.1 fl (7.5-11.1); MONO % 15.1 % (3.8-10.2); NEUT % 48.5 % (42.8-82.8); PLATELET COUNT 111 10^3/uL (134-434); RBC 3.85 M/mm3 (4.00-5.60); WHITE BLOOD COUNT 7.7 K/mm3 (4.0-10.0)
[2023-02-03 22:53] LABS: INR 1.17 (0.83-1.09); PROTHROMBIN TIME (PATIENT) 13.6 SEC (9.7-13.0)
[2023-02-03 22:56] LABS: ACTIVATED PTT 29.3 SECONDS (25.2-36.5)
[2023-02-03 23:05] LABS: POTASSIUM 3.5 mmol/L (3.5-5.1)
[2023-02-03 23:08] LABS: ALBUMIN 3.1 g/dl (3.4-5.0); CALCIUM 8.2 mg/dL (8.5-10.1)
[2023-02-03 23:10] LABS: BLOOD UREA NITROGEN 17.6 mg/dL (7-18)
[2023-02-03 23:12] LABS: CREATININE 1.1 mg/dL (0.55-1.3)
[2023-02-03 23:13] LABS: TOT PROT 6.4 g/dl (6.4-8.2)
[2023-02-03 23:14] LABS: BILIRUBIN,TOTAL 0.4 mg/dL (0.2-1)
[2023-02-03] MEDS ORDERED: ASPIRIN 81 MG CHEWABLE TABLETS PO ONE (23:22)
[2023-02-03] MEDS ORDERED: ASPIRIN 81 MG CHEWABLE TABLETS ONE (23:31)
[2023-02-04] MEDS ORDERED: DOCUSATE SODIUM 100 MG CAPSULE (FP) PO PRN (00:51)
[2023-02-04] MEDS ORDERED: ACETAMINOPHEN 1000 MG/100 ML BAG IVPB PRN (00:56)
[2023-02-04] MEDS ORDERED: ALBUTEROL SO4 HFA INHALER IH PRN (09:15)
[2023-02-04] MEDS ORDERED: TAMSULOSIN HCL 0.4 MG CAP ONE (10:20)
[2023-02-04] MEDS: TAMSULOSIN HCL 0.4 MG CAP PO SCH (10:23)
[2023-02-04] MEDS ORDERED: FUROSEMIDE 40 MG/4 ML INJECTABLE VIAL IVPUSH ONE (13:22)
[2023-02-04] MEDS ORDERED: amLODIPine BESYLATE 5 MG TABLET (FP) ONE (13:24)
[2023-02-04] MEDS ORDERED: HYDROCHLOROTHIAZIDE 25 MG TABLET (FP) ONE (13:25)
[2023-02-04] MEDS: HYDROCHLOROTHIAZIDE 12.5 MG CAPSULE (FP) PO SCH (13:27)
[2023-02-04] MEDS: amLODIPine BESYLATE 5 MG TABLET (FP) PO SCH (13:27)
[2023-02-04] MEDS ORDERED: FUROSEMIDE 40 MG/4 ML INJECTABLE VIAL ONE (14:32)
[2023-02-04] MEDS ORDERED: VALSARTAN 80 MG TABLET ONE (14:32)
[2023-02-04] MEDS: VALSARTAN 160 MG TABLET PO SCH (14:34)
[2023-02-04] MEDS ORDERED: ACETAMINOPHEN 325 MG TABLET (FP) ONE (17:25)
[2023-02-04] MEDS ORDERED: ATORVASTATIN CA 20 MG TABLET (FP) ONE (22:35)
[2023-02-04] MEDS ORDERED: APIXABAN 5 MG TABLET ONE (22:35)
[2023-02-04] MEDS ORDERED: MONTELUKAST NA 10 MG TABLET ONE (22:35)
[2023-02-04] MEDS: MONTELUKAST NA 10 MG TABLET PO SCH (23:01)
[2023-02-04] MEDS: EZETIMIBE 10 MG TABLET (FP) PO SCH (23:01)
[2023-02-04] MEDS: ATORVASTATIN CA 20 MG TABLET (FP) PO SCH (23:01)
[2023-02-04] MEDS: APIXABAN 5 MG TABLET PO SCH (23:01)
[2023-02-04 23:44] LABS: PH,URINE 6.5 (5.0-8.0); URINE APPEARANCE CLEAR; URINE BILIRUBIN NEGATIVE (NEGATIVE); URINE COLOR YELLOW; URINE GLUCOSE (UA) NEGATIVE (NEGATIVE); URINE KETONE NEGATIVE (NEGATIVE); URINE LEUK ESTERASE NEGATIVE (NEGATIVE); URINE NITRITE NEGATIVE (NEGATIVE); URINE PROTEIN NEGATIVE (NEGATIVE); URINE UROBILINOGEN 0.2 mg/dL (0.2-1.0)
[2023-02-05 01:44] VITALS: BMI 24.5
[2023-02-05 07:34] LABS: BASO % 1.8 % (0-2.0); EOS % 3.8 % (0-4.5); HEMATOCRIT 36.2 % (35.4-49); HEMOGLOBIN 12.1 GM/dL (11.7-16.9); LYMPH % 28.1 % (8-40); MCH 27.7 pg (25.7-33.7); MCHC 33.3 g/dl (32.0-35.9); MEAN CELL VOLUME 83.2 fl (80-96); MEAN PLT VOLUME 11.2 fl (7.5-11.1); MONO % 12.6 % (3.8-10.2); NEUT % 53.7 % (42.8-82.8); PLATELET COUNT 116 10^3/uL (134-434); RBC 4.35 M/mm3 (4.00-5.60); RDW 14.5 % (11.9-15.9); WHITE BLOOD COUNT 6.2 K/mm3 (4.0-10.0)
[2023-02-05 07:44] LABS: POTASSIUM 3.3 mmol/L (3.5-5.1)
[2023-02-05 07:46] LABS: CALCIUM 8.7 mg/dL (8.5-10.1)
[2023-02-05 07:47] LABS: BLOOD UREA NITROGEN 15.2 mg/dL (7-18); MAGNESIUM 2.2 mg/dL (1.8-2.4)
[2023-02-05 07:50] LABS: PHOSPHOROUS 3.4 mg/dL (2.5-4.9)
[2023-02-05] MEDS: TAMSULOSIN HCL 0.4 MG CAP PO SCH (08:27)
[2023-02-05] MEDS: VALSARTAN 160 MG TABLET PO SCH (09:20)
[2023-02-05] MEDS: amLODIPine BESYLATE 5 MG TABLET (FP) PO SCH (09:20)
[2023-02-05] MEDS: APIXABAN 5 MG TABLET PO SCH ×2 (09:20→22:15)
[2023-02-05] MEDS: HYDROCHLOROTHIAZIDE 12.5 MG CAPSULE (FP) PO SCH (09:21)
[2023-02-05] MEDS ORDERED: FLU VACCINE (FLULAVAL) PF 60 MCG/0.5 ML SYRINGE 2023-2024 IM ONE (10:00)
[2023-02-05] MEDS ORDERED: POTASSIUM CHLORIDE TABS 20 MEQ TABLET.ER (FP) PO ONE (14:00)
[2023-02-05] MEDS: ACETAMINOPHEN 325 MG TABLET (FP) PO PRN ×2 (15:18→22:16)
[2023-02-05] MEDS: MONTELUKAST NA 10 MG TABLET PO SCH (22:15)
[2023-02-05] MEDS: EZETIMIBE 10 MG TABLET (FP) PO SCH (22:15)
[2023-02-05] MEDS: ATORVASTATIN CA 20 MG TABLET (FP) PO SCH (22:15)
[2023-02-06] MEDS: amLODIPine BESYLATE 5 MG TABLET (FP) PO SCH (09:39)
[2023-02-06] MEDS: VALSARTAN 160 MG TABLET PO SCH (09:39)
[2023-02-06] MEDS: HYDROCHLOROTHIAZIDE 12.5 MG CAPSULE (FP) PO SCH (09:39)
[2023-02-06] MEDS: TAMSULOSIN HCL 0.4 MG CAP PO SCH (09:39)
[2023-02-06] MEDS: APIXABAN 5 MG TABLET PO SCH ×2 (09:39→21:30)
[2023-02-06] MEDS: MONTELUKAST NA 10 MG TABLET PO SCH (21:30)
[2023-02-06] MEDS: EZETIMIBE 10 MG TABLET (FP) PO SCH (21:30)
[2023-02-06] MEDS: ATORVASTATIN CA 20 MG TABLET (FP) PO SCH (21:30)
[2023-02-06] MEDS ORDERED: MOMETASONE FUROATE 220 MCG/IH INHALER IH SCH (22:00)
[2023-02-07 00:57] VITALS: RESP 18
[2023-02-07 05:19] VITALS: TEMP 97.8
[2023-02-07] MEDS ORDERED: amLODIPine BESYLATE 10 MG TABLET (FP) PO SCH (07:25)
[2023-02-07] MEDS: TAMSULOSIN HCL 0.4 MG CAP PO SCH (09:07)
[2023-02-07] MEDS: APIXABAN 5 MG TABLET PO SCH (09:07)
[2023-02-07] MEDS: VALSARTAN 160 MG TABLET PO SCH (09:07)
[2023-02-07] MEDS: HYDROCHLOROTHIAZIDE 12.5 MG CAPSULE (FP) PO SCH (09:07)
[2023-02-07 10:59] VITALS: BP 143/74; PULSE 64
== END 2023-02-07 11:58 | disposition home or self-care (01) ==
LOC: JER 21:20 → JERBED 23:17 → J4W 02-04 23:22
PROVIDERS: ADMIT Internal Medicine; ATTEND Family Medicine
PROC: 3E033GC Introduction of Other Therapeutic Substance into Peripheral Vein, Percutaneous Approach (ICD-10-PCS; principal; 2023-02-03)
PROC: 3E023GC Introduction of Other Therapeutic Substance into Muscle, Percutaneous Approach (ICD-10-PCS; 2023-02-03)
DX: G45.9 Transient cerebral ischemic attack, unspecified (principal); I25.10 Atherosclerotic heart disease of native coronary artery without angina pectoris; R07.2 Precordial pain; I48.92 Unspecified atrial flutter; E78.5 Hyperlipidemia, unspecified; I50.9 Heart failure, unspecified; I11.0 Hypertensive heart disease with heart failure; E11.9 Type 2 diabetes mellitus without complications; Z86.73 Personal history of transient ischemic attack (TIA), and cerebral infarction without residual deficits; I25.2 Old myocardial infarction; Z79.01 Long term (current) use of anticoagulants; M19.90 Unspecified osteoarthritis, unspecified site; Z95.1 Presence of aortocoronary bypass graft; Z87.891 Personal history of nicotine dependence; Z95.0 Presence of cardiac pacemaker; Z95.2 Presence of prosthetic heart valve; Z98.49 Cataract extraction status, unspecified eye; Z23 Encounter for immunization
CPT/HCPCS: 36415; 70450-TC; 70496-TC; 70498-TC; 71045-TC-FY; 80048; 80053; 80061; 81003; 82550; 82962; 83036; 83735; 84100; 84484; 85025; 85610; 85730; 90686; 93005; 93010; 96372; 96374; 99285-25; G0378

== ENCOUNTER 2023-06-19 15:30 | Emergency (ER) | payer OTHER ==
[2023-06-19 15:33] VITALS: RESP 18; TEMP 97.7; BMI 24.6
[2023-06-19] MEDS ORDERED: KETOROLAC TROMETHAMINE 15 MG/ML VIAL ONE (17:14)
[2023-06-19] MEDS: SODIUM CHLORIDE FOR INHALATION 3 ML VIAL.NEB IH ONE (17:19)
[2023-06-19] MEDS: KETOROLAC TROMETHAMINE 15 MG/ML VIAL IM ONE (17:36)
[2023-06-19 17:40] LABS: BASO % 1.3 % (0-2.0); EOS % 1.5 % (0-4.5); LYMPH % 12.9 % (8-40); MCH 27.4 pg (25.7-33.7); MCHC 32.6 g/dl (32.0-35.9); MEAN PLT VOLUME 10.3 fl (7.5-11.1); MONO % 15.2 % (3.8-10.2); NEUT % 69.1 % (42.8-82.8); PLATELET COUNT 167 10^3/uL (134-434); RBC 5.12 M/mm3 (4.00-5.60); RDW 15.8 % (11.9-15.9); WHITE BLOOD COUNT 8.7 K/mm3 (4.0-10.0)
[2023-06-19 18:00] LABS: POTASSIUM 3.5 mmol/L (3.5-5.1)
[2023-06-19 18:02] LABS: CALCIUM 9.3 mg/dL (8.5-10.1)
[2023-06-19 18:03] LABS: ALBUMIN 3.5 g/dl (3.4-5.0); BLOOD UREA NITROGEN 16.6 mg/dL (7-18)
[2023-06-19 18:07] LABS: BILIRUBIN,TOTAL 0.7 mg/dL (0.2-1); TOT PROT 7.8 g/dl (6.4-8.2)
[2023-06-19 18:24] LABS: INR 1.34 (0.83-1.09); PROTHROMBIN TIME (PATIENT) 15.5 SEC (9.7-13.0)
[2023-06-19 18:27] LABS: ACTIVATED PTT 33.3 SECONDS (25.2-36.5)
[2023-06-19 20:02] VITALS: BP 153/92; PULSE 66
== END 2023-06-19 20:18 | disposition home or self-care (01) ==
LOC: JER 15:30
PROC: 3E0233Z Introduction of Anti-inflammatory into Muscle, Percutaneous Approach (ICD-10-PCS; principal; 2023-06-19)
PROC: 3E0F7GC Introduction of Other Therapeutic Substance into Respiratory Tract, Via Natural or Artificial Opening (ICD-10-PCS; 2023-06-19)
DX: R06.02 Shortness of breath (principal); R05.9 Cough, unspecified; R09.81 Nasal congestion; M79.10 Myalgia, unspecified site; R68.83 Chills (without fever); R10.13 Epigastric pain; R11.0 Nausea; B97.4 Respiratory syncytial virus as the cause of diseases classified elsewhere; Z20.822 Contact with and (suspected) exposure to COVID-19
CPT/HCPCS: 0241U-QW; 36415; 71046-TC-FY; 80053; 83690; 84484; 85025; 85610; 85730; 93005; 93010; 94640; 96372; 99285-25

== ENCOUNTER 2023-08-19 15:53 | Observation (INO) | payer OTHER ==
[2023-08-19 17:05] LABS: VENOUS BASE EXCESS -0.6 mmol/L (-2-2); VENOUS PCO2 49.2 mmHg (38-52); VENOUS PH 7.338 (7.310-7.410)
[2023-08-19 17:08] LABS: EOS % 2.6 % (0-4.5); HEMATOCRIT 37.3 % (35.4-49); HEMOGLOBIN 12.4 GM/dL (11.7-16.9); LYMPH % 17.5 % (8-40); MCH 27.7 pg (25.7-33.7); MCHC 33.4 g/dl (32.0-35.9); MEAN CELL VOLUME 83.1 fl (80-96); MEAN PLT VOLUME 10.9 fl (7.5-11.1); NEUT % 66.9 % (42.8-82.8); PLATELET COUNT 129 10^3/uL (134-434); RBC 4.49 M/mm3 (4.00-5.60); WHITE BLOOD COUNT 7.3 K/mm3 (4.0-10.0)
[2023-08-19 17:09] LABS: PH,URINE 6.5 (5.0-8.0); URINE APPEARANCE CLEAR; URINE BILIRUBIN NEGATIVE (NEGATIVE); URINE COLOR YELLOW; URINE GLUCOSE (UA) NEGATIVE (NEGATIVE); URINE KETONE NEGATIVE (NEGATIVE); URINE LEUK ESTERASE NEGATIVE (NEGATIVE); URINE NITRITE NEGATIVE (NEGATIVE); URINE PROTEIN NEGATIVE (NEGATIVE)
[2023-08-19 17:14] LABS: INR 1.21 (0.83-1.09)
[2023-08-19 17:17] LABS: ACTIVATED PTT 32.9 SECONDS (25.2-36.5)
[2023-08-19 17:24] LABS: POTASSIUM 3.9 mmol/L (3.5-5.1)
[2023-08-19 17:26] LABS: ALBUMIN 3.3 g/dl (3.4-5.0); BLOOD UREA NITROGEN 20.2 mg/dL (7-18); CALCIUM 8.7 mg/dL (8.5-10.1); MAGNESIUM 2.1 mg/dL (1.8-2.4)
[2023-08-19 17:31] LABS: BILIRUBIN,TOTAL 0.3 mg/dL (0.2-1); TOT PROT 6.9 g/dl (6.4-8.2)
[2023-08-19] MEDS ORDERED: MECLIZINE HCL 25 MG TABLET (FP) ONE (17:42)
[2023-08-19] MEDS: MECLIZINE HCL 25 MG TABLET (FP) PO ONE (17:50)
[2023-08-19] MEDS ORDERED: NITROGLYCERIN SUBLINGUAL 1/150 0.4 MG TAB ONE ×2 (18:44→19:05)
[2023-08-19] MEDS: NITROGLYCERIN SUBLINGUAL 1/150 0.4 MG TAB SL ONE (18:52)
[2023-08-19] MEDS: NITROGLYCERIN SUBLINGUAL 1/200 0.3 MG BTL SL ONE (18:52)
[2023-08-19] MEDS ORDERED: NOREPINEPHRINE BITARTRATE/D5W 8 MG/250 ML BAG IVPB ONE (19:07)
[2023-08-19] MEDS ORDERED: ONDANSETRON 4 MG/2 ML VIAL ONE (19:20)
[2023-08-19] MEDS ORDERED: CHARCOAL/SORBITOL SOLUTION 25 GM/120 ML BTL ONE (19:20)
[2023-08-19] MEDS: CHARCOAL/SORBITOL SOLUTION 25 GM/120 ML BTL PO ONE (19:34)
[2023-08-19] MEDS: ACTIVATED CHARCOAL 260 MG CAPSULE PO ONE (19:34)
[2023-08-19] MEDS: ONDANSETRON 4 MG/2 ML VIAL IVPUSH ONE (19:34)
[2023-08-19] MEDS ORDERED: ACETAMINOPHEN INJECTION 100 ML IVPB ONE (22:36)
[2023-08-19] MEDS: ACETAMINOPHEN 1000 MG/100 ML BAG IVPB ONE (22:40)
[2023-08-20 00:18] VITALS: BMI 25.0
[2023-08-20] MEDS: APIXABAN 5 MG TABLET PO SCH (00:55)
[2023-08-20] MEDS: metoPROLOL SUCCINATE 25 MG TAB.SR.24H (FP) PO SCH (09:30)
[2023-08-20] MEDS: VALSARTAN 160 MG TABLET PO SCH (09:30)
[2023-08-20] MEDS: TAMSULOSIN HCL 0.4 MG CAP PO SCH (09:31)
[2023-08-20] MEDS: EZETIMIBE 10 MG TABLET (FP) PO SCH (09:31)
[2023-08-20] MEDS ORDERED: FLUTICASONE FUROATE IH SCH (10:00)
[2023-08-20] MEDS: INSULIN ASPART SLIDING SCALE (NOVOLOG) 1 VIAL SQ SCH (11:48)
[2023-08-20] MEDS: ACETAMINOPHEN 325 MG TABLET (FP) PO PRN (17:48)
[2023-08-20] MEDS: VALSARTAN 160 MG TABLET PO ONE (17:49)
[2023-08-20] MEDS: MONTELUKAST NA 10 MG TABLET PO SCH (21:12)
[2023-08-20] MEDS: ACETAMINOPHEN 325 MG TABLET (FP) PO ONE (22:14)
[2023-08-20] MEDS: guaiFENesin 200 MG/10 ML 10 ML UNIT-DOSE CUPS PO PRN (22:14)
[2023-08-21] MEDS: sitaGLIPtin PHOSPHATE 50 MG TABLET PO SCH (06:38)
[2023-08-21 07:51] LABS: HEMATOCRIT 34.4 % (35.4-49); HEMOGLOBIN 11.3 GM/dL (11.7-16.9); MCH 27.6 pg (25.7-33.7); MCHC 32.8 g/dl (32.0-35.9); MEAN CELL VOLUME 84.1 fl (80-96); MEAN PLT VOLUME 10.5 fl (7.5-11.1); PLATELET COUNT 103 10^3/uL (134-434); RBC 4.09 M/mm3 (4.00-5.60); RDW 14.9 % (11.9-15.9); WHITE BLOOD COUNT 8.1 K/mm3 (4.0-10.0)
[2023-08-21 08:17] LABS: POTASSIUM 3.3 mmol/L (3.5-5.1)
[2023-08-21 08:19] LABS: CALCIUM 8.3 mg/dL (8.5-10.1)
[2023-08-21 08:20] LABS: BLOOD UREA NITROGEN 15.9 mg/dL (7-18)
[2023-08-21 08:23] LABS: CREATININE 0.8 mg/dL (0.55-1.3)
[2023-08-21 08:25] LABS: TOT PROT 6.3 g/dl (6.4-8.2)
[2023-08-21] MEDS: amLODIPine BESYLATE 10 MG TABLET (FP) PO SCH (09:35)
[2023-08-21] MEDS: VALSARTAN 160 MG TABLET PO SCH (09:35)
[2023-08-21] MEDS: hydrALAZINE HCL 10 MG TABLET PO SCH (12:43)
[2023-08-21] MEDS: POTASSIUM CHLORIDE ORAL LIQUID 20 MEQ/15 ML PO ONE (12:43)
[2023-08-22] MEDS: ALBUTEROL SO4 HFA INHALER IH PRN (16:16)
[2023-08-22 16:38] LABS: POTASSIUM 3.4 mmol/L (3.5-5.1)
[2023-08-22 16:39] LABS: CALCIUM 8.8 mg/dL (8.5-10.1)
[2023-08-22 16:40] LABS: BLOOD UREA NITROGEN 20.4 mg/dL (7-18)
[2023-08-22] MEDS: POTASSIUM CHLORIDE TABS 20 MEQ TABLET.ER (FP) PO ONE (18:35)
[2023-08-22] MEDS: MECLIZINE HCL 25 MG TABLET (FP) PO ONE (21:49)
[2023-08-23] MEDS: MELATONIN 5 MG TABLETS PO ONE (06:04)
[2023-08-23] MEDS: MECLIZINE HCL 12.5 MG TABLET PO PRN (12:51)
[2023-08-23] MEDS: hydrALAZINE HCL 10 MG TABLET PO ONE (14:58)
[2023-08-23] MEDS: hydrALAZINE HCL 25 MG TABLET (FP) PO SCH (21:13)
[2023-08-24 07:08] LABS: HEMATOCRIT 35.7 % (35.4-49); HEMOGLOBIN 11.6 GM/dL (11.7-16.9); MCH 27.3 pg (25.7-33.7); MCHC 32.6 g/dl (32.0-35.9); MEAN CELL VOLUME 83.6 fl (80-96); MEAN PLT VOLUME 10.5 fl (7.5-11.1); PLATELET COUNT 112 10^3/uL (134-434); RBC 4.27 M/mm3 (4.00-5.60); RDW 14.3 % (11.9-15.9); WHITE BLOOD COUNT 6.4 K/mm3 (4.0-10.0)
[2023-08-24 07:41] LABS: POTASSIUM 3.7 mmol/L (3.5-5.1)
[2023-08-24 07:44] LABS: ALBUMIN 2.9 g/dl (3.4-5.0); BLOOD UREA NITROGEN 15.8 mg/dL (7-18); CALCIUM 8.5 mg/dL (8.5-10.1); MAGNESIUM 2.2 mg/dL (1.8-2.4)
[2023-08-24 07:46] LABS: CREATININE 0.8 mg/dL (0.55-1.3)
[2023-08-24 07:49] LABS: BILIRUBIN,TOTAL 0.7 mg/dL (0.2-1); TOT PROT 6.5 g/dl (6.4-8.2)
[2023-08-24] MEDS ORDERED: SODIUM CHLORIDE NASAL SPRAY 44 ML BOTTLE NS PRN (12:53)
[2023-08-24] MEDS: FLUTICASONE PROP 0.05% 16 GM NASAL SPRAY NS SCH (21:24)
[2023-08-25 06:02] VITALS: TEMP 98.1
[2023-08-25 07:07] LABS: THYROID STIM IMMUNOGLOBULIN <0.10 IU/L (0.00-0.55)
[2023-08-25 10:14] VITALS: BP 153/70; PULSE 65; RESP 21
== END 2023-08-25 15:03 | disposition home health service (06) ==
LOC: JER 15:53 → JERBED 17:47 → J2W 23:45
PROVIDERS: ADMIT Student in an Organized Health Care Education/Training Program; ATTEND Internal Medicine
PROC: 3E033NZ Introduction of Analgesics, Hypnotics, Sedatives into Peripheral Vein, Percutaneous Approach (ICD-10-PCS; principal; 2023-08-19)
PROC: 3E033GC Introduction of Other Therapeutic Substance into Peripheral Vein, Percutaneous Approach (ICD-10-PCS; 2023-08-19)
DX: I16.0 Hypertensive urgency (principal); T50.901A Poisoning by unspecified drugs, medicaments and biological substances, accidental (unintentional), initial encounter; I25.10 Atherosclerotic heart disease of native coronary artery without angina pectoris; E11.9 Type 2 diabetes mellitus without complications; E78.5 Hyperlipidemia, unspecified; Z86.73 Personal history of transient ischemic attack (TIA), and cerebral infarction without residual deficits; R07.9 Chest pain, unspecified; I25.2 Old myocardial infarction; Z86.79 Personal history of other diseases of the circulatory system; I50.9 Heart failure, unspecified; J45.909 Unspecified asthma, uncomplicated; R05.9 Cough, unspecified; H91.90 Unspecified hearing loss, unspecified ear; X58.XXXA Exposure to other specified factors, initial encounter; Y99.8 Other external cause status; Y93.89 Activity, other specified
CPT/HCPCS: 0241U-QW; 36415; 70450-TC; 71045-TC-FY; 72131-TC; 80048; 80053; 81003; 82384; 82570; 82607; 82803; 82962; 83735; 84439; 84443; 84445; 84481; 84484; 84585; 85025; 85027; 85610; 85730; 86376; 86593; 86780; 86850; 86900; 86901; 87086; 93005; 93010; 97116-GP; 97162-GP; 99285-25; G0378; J0131